=== PATIENT | female | born 1975 | race Hispanic/Latino ===

== ENCOUNTER 2018-07-25 23:47 | Emergency (ER) | payer BC, OTHER ==
[2018-07-26 00:08] LABS: Urine Blood 1+ (NEG); Urine Glucose NEGATIVE (NEG); Urine Protein NEGATIVE (NEG)
[2018-07-26] MEDS ORDERED: FENTANYL CITR 100 MCG/2 ML ONE (00:09)
[2018-07-26] MEDS ORDERED: ONDANSETRON 4 MG/2 ML VIAL ONE (00:09)
[2018-07-26 00:14] LABS: Absolute Lymphocytes (CBC) 3.2 K/uL (0.7-4.9); Absolute Monocytes 0.5 K/uL (0.1-1.3); Absolute Neutrophil 5.5 K/uL (1.8-8.0); Basophils % 0.6 % (0-1.3); Eosinophils % 1.3 % (0-4.4); Hematocrit 38.1 % (36.0-45.0); MCH 31.7 pg (27.0-35.0); MCV 91.2 fL (80-100); MPV 8.6 fL (7.6-11.3); Monocytes % 5.3 % (3.3-12.3); RBC Red Blood Cell Count 4.18 M/uL (3.86-4.86)
[2018-07-26 00:29] LABS: Urine Amorphous Sediment 4+ /HPF (NONE SEEN); Urine Bacteria <20 /HPF (<20); Urine Culture Reflex Order NOT NEEDED
[2018-07-26 00:42] LABS: Albumin 3.4 g/dL (3.4-5.0); Bilirubin Direct 0.1 mg/dL (0-0.2); Bilirubin Total 0.3 mg/dL (0.2-1.0); Potassium 3.8 mmol/L (3.5-5.1); Protein, Total 6.9 g/dL (6.4-8.2)
--- NOTE | 2018-07-26 02:27 | ER ---
Nurse's Notes [facility] Name: Marjorie Kingston Age: 42 yrs Sex: Female : 1975 Arrival Date: 07/25/2018 Time: 23:48 Bed 5 Private MD: Pierre Jiménez Diagnosis: Hydronephrosis with renal and ureteral calculous obstruction Presentation: 07/26 00:05 Presenting complaint: Patient states: right flank, right lower abd pain with N/V ak1 starting tonight. Transition of care: patient was not received from another setting of care. Onset of symptoms was July 26, 2018. Risk Assessment: Do you want to hurt yourself or someone else? Patient reports no desire to harm self or others. Initial Sepsis Screen: Does the patient meet any 2 criteria? No. Patient's initial sepsis screen is negative. Does the patient have a suspected source of infection? No. Patient's initial sepsis screen is negative. Care prior to arrival: None. 00:05 Method Of Arrival: Ambulatory ak1 00:05 Acuity: TIAN 3 ak1 Triage Assessment: 00:07 General: Appears uncomfortable, Behavior is calm, cooperative. Pain: Complains of pain ak1 in right lower quadrant and anterior aspect of right lateral abdomen and right mid back and right flank. EENT: No signs and/or symptoms were reported regarding the EENT system. Neuro: No deficits noted. Cardiovascular: No deficits noted. Respiratory: No deficits noted. GI: Reports lower abdominal pain, cramping, nausea, Pain is 6 out of 10 on a pain scale. vomiting. : No signs and/or symptoms were reported regarding the genitourinary system. Derm: No signs and/or symptoms reported regarding the dermatologic system. Musculoskeletal: No signs and/or symptoms reported regarding the musculoskeletal system. 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 - Social history:: Smoking status: Patient/guardian denies using tobacco. - Ebola Screening: : No symptoms or risks identified at this time. Screenin:09 Abuse screen: Denies threats or abuse. Denies injuries from another. Nutritional ak1 screening: No deficits noted. Tuberculosis screening: No symptoms or risk factors identified. Fall Risk None identified. Assessment: 00:08 Reassessment: Patient appears in no apparent distress at this time. No changes from ak1 previously documented assessment. Patient is alert, oriented x 3, equal unlabored respirations, skin warm/dry/pink. see triage assessment. GI: Abdomen is flat, non-distended. 01:53 Reassessment: Patient appears in no apparent distress at this time. No changes from ak1 previously documented assessment. Patient is alert, oriented x 3, equal unlabored respirations, skin warm/dry/pink. pt and family informed of wait for CT results. Vital Signs: 00:04 BP 148 / 91; Pulse 74; Resp 18; Temp 98.2(O); Pulse Ox 100% on R/A; Weight 108.86 kg ak1 (R); Height 5 ft. 4 in. (162.56 cm) (R); Pain 6/10; 00:09 BP 148 / 91; Pulse 72; Resp 16; Pulse Ox 98% on R/A; mt 01:30 BP 119 / 75; Pulse 60; Resp 16; Pulse Ox 97% on R/A; ak1 00:04 Body Mass Index 41.20 (108.86 kg, 162.56 cm) ak1 ED Course: 07/25 23:48 Patient arrived in ED. am2 23:49 Pierre Jiménez DO is Private Physician. am2 23:51 [facility] jr8 23:51 Jasbir Dee MD is Attending Physician. jr8 07/26 00:04 Kim Mae, FRANCISCO is Primary Nurse. ak1 00:04 Arm band placed on Patient placed in an exam room, on a stretcher, on pulse oximetry, ak1 Patient notified of wait time. 00:06 Triage completed. ak1 00:09 Patient has correct armband on for positive identification. Bed in low position. Call ak1 light in reach. Side rails up X 1. Side rails up X2. Adult w/ patient. Pulse ox on. NIBP on. 00:09 Missed attempt(s): 20 gauge in left antecubital area. mt 00:19 Inserted saline lock: 22 gauge in right forearm, using aseptic technique. lp1 01:13 CT completed. Patient tolerated procedure well. Patient moved to CT via wheelchair. 01:19 CT Abd/Pelvis - W/Contrast In Process Unspecified. EDMS 01:54 No provider procedures requiring assistance completed. ak1 02:01 Patient moved back from CT. 02:26 Alma Cruz MD is Referral Physician. jr8 02:46 IV discontinued, intact, bleeding controlled, No redness/swelling at site. Pressure ak1 dressing applied. Administered Medications: 00:20 Drug: fentaNYL (PF) 50 mcg Route: IVP; Site: right forearm; lp1 00:40 Follow up: Response: Pain is decreased lp1 00:20 Drug: Zofran 4 mg Route: IVP; Site: right forearm; lp1 00:40 Follow up: Response: No adverse reaction lp1 01:26 Drug: fentaNYL (PF) 50 mcg Route: IVP; Site: right forearm; lp1 02:45 Follow up: Response: No adverse reaction ak1 02:25 Drug: TORadol 30 mg Route: IVP; Site: left antecubital; ak1 02:45 Follow up: Response: No adverse reaction ak1 02:25 Drug: Flomax 0.4 mg Route: PO; ak1 02:45 Follow up: Response: No adverse reaction ak1 Outcome: 02:26 Discharge ordered by . jr8 02:46 Discharged to home via wheelchair, with family. ak1 02:46 Condition: improved 02:46 Discharge instructions given to patient, family, Instructed on discharge instructions, follow up and referral plans. no drinking with medication, no driving heavy equipment, medication usage, safe sex practices, Demonstrated understanding of instructions, follow-up care, medications, Prescriptions given X 3. 02:47 Patient left the ED. ak1 Signatures: Dispatcher [employer] EDMI Juarez Blount Ruby Martinez RN RN lp1 Lew Shukla PA PA jr8 Kim Mae RN RN ak1 Stefania Nunez Moriah sc
--- NOTE | 2018-07-26 02:27 | EDPHYS ---
Physician Documentation [facility] Name: Marjorie Kingston Age: 42 yrs Sex: Female : 1975 Arrival Date: 07/25/2018 Time: 23:48 Bed 5 Private MD: Pierre Jiménez ED Physician Jasbir Dee HPI: 07/25 23:59 This 42 yrs old Female presents to ER via Unassigned with complaints of Flank jr8 Pain, Nausea/Vomiting/Diarrhea, Chills. 23:59 The pain radiates. Onset: The symptoms/episode began/occurred acutely, today. Modifying jr8 factors: The symptoms are alleviated by nothing. the symptoms are aggravated by movement, palpation/percussion. Associated signs and symptoms: Pertinent positives: diarrhea, nausea. Severity of pain: At its worst the pain was moderate in the emergency department the pain is unchanged. The patient has not experienced similar symptoms in the past. The patient has not recently seen a physician. HEALTH AID: 07/26 00:04 LMP 07/19/2018, UPT negative ak1 Historical: - Allergies: 00:07 No Known Allergies; ak1 - Home Meds: 00:07 None [Active]; ak1 - PMHx: 00:07 None; ak1 - PSHx: 00:07 ; Cholecystectomy; ak1 - Immunization history:: Adult Immunizations unknown. - Social history:: Smoking status: Patient/guardian denies using tobacco. - Ebola Screening: : No symptoms or risks identified at this time. ROS: 07/25 23:59 Eyes: Negative for injury, pain, redness, and discharge, ENT: Negative for injury, jr8 pain, and discharge, Neck: Negative for injury, pain, and swelling, Respiratory: Negative for shortness of breath, cough, wheezing, and pleuritic chest pain, MS/Extremity: Negative for injury and deformity, Skin: Negative for injury, rash, and discoloration, Neuro: Negative for headache, weakness, numbness, tingling, and seizure. Abdomen/GI: Positive for abdominal pain, nausea, diarrhea, Negative for abdominal distension, anorexia, dysphagia, hematemesis, black/tarry stool, rectal pain, rectal bleeding, bowel incontinence, flatulence. Back: Positive for pain at rest, pain with movement, of the right flank and right mid back. Exam: 23:59 Eyes: Pupils equal round and reactive to light, extra-ocular motions intact. Lids and jr8 lashes normal. Conjunctiva and sclera are non-icteric and not injected. Cornea within normal limits. Periorbital areas with no swelling, redness, or edema. ENT: Nares patent. No nasal discharge, no septal abnormalities noted. Tympanic membranes are normal and external auditory canals are clear. Oropharynx with no redness, swelling, or masses, exudates, or evidence of obstruction, uvula midline. Mucous membranes moist. Neck: Trachea midline, no thyromegaly or masses palpated, and no cervical lymphadenopathy. Supple, full range of motion without nuchal rigidity, or vertebral point tenderness. No Meningismus. Cardiovascular: Regular rate and rhythm with a normal S1 and S2. No gallops, murmurs, or rubs. Normal PMI, no JVD. No pulse deficits. Respiratory: Lungs have equal breath sounds bilaterally, clear to auscultation and percussion. No rales, rhonchi or wheezes noted. No increased work of breathing, no retractions or nasal flaring. Back: No spinal tenderness. No costovertebral tenderness. Full range of motion. Skin: Warm, dry with normal turgor. Normal color with no rashes, no lesions, and no evidence of cellulitis. MS/ Extremity: Pulses equal, no cyanosis. Neurovascular intact. Full, normal range of motion. Neuro: Awake and alert, GCS 15, oriented to person, place, time, and situation. Cranial nerves II-XII grossly intact. Motor strength 5/5 in all extremities. Sensory grossly intact. Cerebellar exam normal. Normal gait. 23:59 Abdomen/GI: Inspection: obese Bowel sounds: active, all quadrants, Palpation: soft, in all quadrants, mild abdominal tenderness, in the anterior aspect of right lateral abdomen and right lower quadrant, mass, is not appreciated, rebound tenderness, is not appreciated, voluntary guarding, is not appreciated, involuntary guarding, is not appreciated, no appreciated organomegaly, Indicators: McBurney's point is not tender, Elder's sign is negative, Rovsing's sign is negative, Liver: no appreciated palpable abnormalities, tenderness, is not appreciated. Vital Signs: 07/26 00:04 BP 148 / 91; Pulse 74; Resp 18; Temp 98.2(O); Pulse Ox 100% on R/A; Weight 108.86 kg ak1 (R); Height 5 ft. 4 in. (162.56 cm) (R); Pain 6/10; 00:09 BP 148 / 91; Pulse 72; Resp 16; Pulse Ox 98% on R/A; mt 01:30 BP 119 / 75; Pulse 60; Resp 16; Pulse Ox 97% on R/A; ak1 00:04 Body Mass Index 41.20 (108.86 kg, 162.56 cm) ak1 MDM: 07/25 23:51 Patient medically screened. 07/26 02:25 Differential diagnosis: nephrolithiasis, pyelonephritis, UTI. Data reviewed: [facility] signs, nurses notes, lab test result(s), radiologic studies, CT scan. Data interpreted: Pulse oximetry: on room air is 97 %. Interpretation: normal. Counseling: I had a detailed discussion with the patient and/or guardian regarding: the historical points, exam findings, and any diagnostic results supporting the discharge/admit diagnosis, lab results, radiology results, the need for outpatient follow up, a urologist, to return to the emergency department if symptoms worsen or persist or if there are any questions or concerns that arise at home. 07/25 23:59 Order name: Basic Metabolic Panel; Complete Time: 00:49 07/25 23:59 Order name: CBC with Diff; Complete Time: 00:22 07/25 23:59 Order name: Hepatic Function; Complete Time: 00:49 07/25 23:59 Order name: Lipase; Complete Time: 00:49 07/25 23:59 Order name: Urine Microscopic Only; Complete Time: 00:39 07/25 23:59 Order name: CT Abd/Pelvis - W/Contrast 07/26 00:04 Order name: Urine Dipstick--Ancillary (enter results) [facility] 07/26 00:04 Order name: Urine --Ancillary (enter results) [facility] 07/25 23:59 Order name: Urine Test (obtain specimen); Complete Time: 00:01 07/25 23:59 Order name: IV Saline Lock; Complete Time: 00:20 [facility] 07/25 23:59 Order name: Labs collected and sent; Complete Time: 00:20 07/25 23:59 Order name: Urine Dipstick-Ancillary (obtain specimen); Complete Time: 00:01 jr8 Administered Medications: 00:20 Drug: fentaNYL (PF) 50 mcg Route: IVP; Site: right forearm; lp1 00:40 Follow up: Response: Pain is decreased lp1 00:20 Drug: Zofran 4 mg Route: IVP; Site: right forearm; lp1 00:40 Follow up: Response: No adverse reaction lp1 01:26 Drug: fentaNYL (PF) 50 mcg Route: IVP; Site: right forearm; lp1 02:45 Follow up: Response: No adverse reaction ak1 02:25 Drug: TORadol 30 mg Route: IVP; Site: left antecubital; ak1 02:45 Follow up: Response: No adverse reaction ak1 02:25 Drug: Flomax 0.4 mg Route: PO; ak1 02:45 Follow up: Response: No adverse reaction ak1 Disposition: 04:49 Co-signature as Attending Physician, Jasbir Dee MD. rn Disposition: 07/26/18 02:26 Discharged to Home. Impression: Hydronephrosis with renal and ureteral calculous obstruction. - Condition is Stable. - Discharge Instructions: Kidney Stones, Hydronephrosis. - Prescriptions for Tylenol- Codeine #3 300-30 mg Oral Tablet - take 2 tablet by ORAL route every 6 hours As needed; 30 tablet. Zofran 4 mg Oral Tablet - take 1 tablet by ORAL route every 12 hours As needed; 20 tablet. Flomax 0.4 mg Oral Capsule, Sust. Release 24 hr - take 1 capsule by ORAL route once daily 1/2 hour following the same meal each day; 30 capsule. - Medication Reconciliation Form, Thank You Letter, Antibiotic Education, Prescription Opioid Use form. - Follow up: Alma Cruz MD; When: 2 - 3 days; Reason: Recheck today's complaints, Continuance of care, Re-evaluation by your physician. - Problem is new. - Symptoms have improved. Signatures: Dispatcher [employer] EDJasbir Barrios MD MD rn Pena, Laura, RN RN lp1 Lew Shukla PA PA jr8 Kim Mae RN RN ak1 Corrections: (The following items were deleted from the chart) 00:12 00:00 Creatinine for Radiology+C.LAB.BRZ ordered. EDOR EDMS 02:47 02:26 07/26/2018 02:26 Discharged to Home. Impression: Hydronephrosis with renal and ak1 ureteral calculous obstruction. Condition is Stable. Forms are Medication Reconciliation Form, Thank You Letter, Antibiotic Education, Prescription Opioid Use. Follow up: Alma Cruz; When: 2 - 3 days; Reason: Recheck today's complaints, Continuance of care, Re-evaluation by your physician. Problem is new. Symptoms have improved. jr8
[2018-07-26] MEDS ORDERED: KETOROLAC 30 MG/ML INJ ONE (02:34)
[2018-07-26] MEDS ORDERED: TAMSULOSIN 0.4 MG SR CAP ONE (02:34)
[2018-07-26 03:01] VITALS: TEMP 98.2
[2018-07-26 03:04] VITALS: BP 119/75; O2SAT 97
--- NOTE | 2018-07-26 08:16 | RAD REPORT ---
EXAM DESCRIPTION: CTAbdomen Pelvis W Contrast - 07/26/2018 2:27 am CLINICAL HISTORY: Abdominal pain. iv only;Abd pain COMPARISON: No comparisons TECHNIQUE: Biphasic CT imaging of the abdomen and pelvis was performed with 100 ml non-ionic IV cont rast. All CT scans are performed using dose optimization technique as appropriate and may include automated exposure control or mA/KV adjustment according to patient size. FINDINGS: The lung bases are clear.Cholecystectomy. The liver demonstrates fatty infiltration. The spleen, pancreas, adrenal glands and left kidney are w ithin normal limits. Mild right hydronephrosis and hydroureter is present. 4 mm stone (400 HU) is pre sent in the distal right ureter. No bowel obstruction, free air, free fluid or abscess. Small fat containing umbilical hernia. The ashley endix is normal. No evidence of significant lymphadenopathy. No suspicious bony findings. IMPRESSION: Mild right hydronephrosis is present caused by a 4 mm stone distal right ureter.
== END 2018-07-26 02:47 | disposition home or self-care (01) ==
LOC: ER 23:47
DX: N13.2 Hydronephrosis with renal and ureteral calculous obstruction (principal)
CPT/HCPCS: 36415; 74177; 80048; 80076; 81003; 81015; 81025; 83690; 85025; 99284; J2405; J3010; Q9967

== ENCOUNTER 2018-07-26 20:26 | Observation (INO) | payer OTHER ==
[2018-07-26] MEDS ORDERED: ONDANSETRON 4 MG/2 ML VIAL ONE (21:09)
[2018-07-26] MEDS ORDERED: MORPHINE 4 MG/ML SYR ONE ×2 (21:09→23:06)
[2018-07-26] MEDS ORDERED: NA CHLORIDE 0.9% 2,000 ML ONE (21:10)
[2018-07-26] MEDS ORDERED: FAMOTIDINE 20 MG/2 ML VIAL IV ONE ×2 (21:10→21:17)
[2018-07-26 21:55] LABS: Absolute Lymphocytes (CBC) 2.1 K/uL (0.7-4.9); Absolute Monocytes 0.5 K/uL (0.1-1.3); Basophils % 0.4 % (0-1.3); Eosinophils % 0.6 % (0-4.4); Hematocrit 39.7 % (36.0-45.0); Lymphocytes % 17.8 % (15.3-44.8); MCH 31.6 pg (27.0-35.0); MCV 91.3 fL (80-100); MPV 9.4 fL (7.6-11.3); Monocytes % 4.4 % (3.3-12.3); RBC Red Blood Cell Count 4.35 M/uL (3.86-4.86)
[2018-07-26] MEDS ORDERED: MAGNESIUM SULFATE 1 gm IVPB 1 GM/100 ML BAG IV ONE (21:55)
--- NOTE | 2018-07-26 22:00 | RAD REPORT ---
EXAM DESCRIPTION: RAD - Abdomen 1 View (KUB) - 07/26/2018 9:51 pm CLINICAL HISTORY: Abdomen pain. FINDINGS: The bowel gas pattern is unremarkable. There are multiple calcifications within the pelvis. 1 probably upper represents the small distal rig ht ureteral calculus seen on the CT abdomen of July 26, 2018
[2018-07-26 22:19] LABS: ALT/SGPT 32 U/L (12-78); AST/SGOT 18 U/L (15-37); Albumin 3.6 g/dL (3.4-5.0); Alkaline Phosphatase 79 U/L (45-117); Amylase Level 28 U/L (25-115); BUN Blood Urea Nitrogen 15 mg/dL (7-18); Bicarbonate 23 mmol/L (21-32); Bilirubin Direct 0.1 mg/dL (0-0.2); Bilirubin Total 0.5 mg/dL (0.2-1.0); Glucose Level 133 mg/dL (74-106); Lipase 64 U/L (73-393); Potassium 3.6 mmol/L (3.5-5.1); Protein, Total 7.5 g/dL (6.4-8.2); Sodium Level 140 mmol/L (136-145)
--- NOTE | 2018-07-26 22:42 | ER ---
Nurse's Notes [facility] Name: Marjorie Kingston Age: 42 yrs Sex: Female : 1975 Arrival Date: 07/26/2018 Time: 20:26 Bed 23 Private MD: Diagnosis: Calculus of kidney and ureter-Right;Unspecified renal colic-Right, intractable;Nausea and vomiting Presentation: 07/26 20:33 Presenting complaint: Patient states: Right flank pain since yesterday. DX with kidney aj stone yesterday. Reports intolerance of food or liquids today. Transition of care: patient was not received from another setting of care. Onset of symptoms was July 25, 2018. Risk Assessment: Do you want to hurt yourself or someone else? Patient reports no desire to harm self or others. Initial Sepsis Screen: Does the patient meet any 2 criteria? No. Patient's initial sepsis screen is negative. Does the patient have a suspected source of infection? No. Patient's initial sepsis screen is negative. Care prior to arrival: None. 20:33 Method Of Arrival: Wheelchair aj 20:33 Acuity: TIAN 3 aj Triage Assessment: 20:34 General: Appears in no apparent distress. uncomfortable, Behavior is calm, cooperative, aj appropriate for age. Pain: Complains of pain in posterior aspect of right lateral abdomen and anterior aspect of right lateral abdomen. Neuro: Level of Consciousness is awake, alert, obeys commands, Oriented to person, place, time, situation, Appropriate for age. Respiratory: Airway is patent Respiratory effort is even, unlabored, Respiratory pattern is regular, symmetrical. GI: Abdomen is obese, Reports nausea, vomiting. : Reports pain in right flank(s). Derm: Skin is intact, is healthy with good turgor, Skin is pink, warm \T\ dry. normal. 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 - Social history:: Smoking status: Patient/guardian denies using tobacco. - Ebola Screening: : Patient negative for fever greater than or equal to 101.5 degrees Fahrenheit, and additional compatible Ebola Virus Disease symptoms Patient denies exposure to infectious person Patient denies travel to an Ebola-affected area in the 21 days before illness onset No symptoms or risks identified at this time. Screenin:47 Abuse screen: Denies threats or abuse. Nutritional screening: No deficits noted. tl3 Tuberculosis screening: No symptoms or risk factors identified. Fall Risk None identified. Assessment: 20:47 General: Appears distressed, uncomfortable, Behavior is cooperative, appropriate for tl3 age, anxious. Pain: Complains of pain in abdomen and anterior aspect of right lateral abdomen and posterior aspect of right lateral abdomen Pain currently is 10 out of 10 on a pain scale. Neuro: Level of Consciousness is awake, alert, obeys commands, Oriented to person, place, time, situation, Appropriate for age. Cardiovascular: Patient's skin is warm and dry. Respiratory: Airway is patent Respiratory effort is even, unlabored, Respiratory pattern is regular, symmetrical. GI: Bowel sounds hyperactive in right upper quadrant, left upper quadrant, right lower quadrant and left lower quadrant Abdomen is tender to palpation in right lower quadrant and left lower quadrant. : Reports cramping, pt dx with kidney stone yesterday 4mm. EENT: No signs and/or symptoms were reported regarding the EENT system. Derm: No signs and/or symptoms reported regarding the dermatologic system. Musculoskeletal: No signs and/or symptoms reported regarding the musculoskeletal system. 21:46 Reassessment: Patient and/or family updated on plan of care and expected duration. Pain tl3 level reassessed. Patient is alert, oriented x 3, equal unlabored respirations, skin warm/dry/pink. pt to radiology. 23:55 Reassessment: Patient appears in no apparent distress at this time. No changes from tl3 previously documented assessment. Patient and/or family updated on plan of care and expected duration. Pain level reassessed. Patient is alert, oriented x 3, equal unlabored respirations, skin warm/dry/pink. Vital Signs: 20:34 BP 149 / 46; Pulse 76; Resp 16; Temp 98.2; Pulse Ox 100% on R/A; Weight 108.86 kg; aj Height 5 ft. 4 in. (162.56 cm); 21:46 BP 124 / 75; Pulse 78; Resp 20; Pulse Ox 100% on R/A; tl3 22:07 BP 122 / 70; Pulse 68; Resp 18; Pulse Ox 98% ; tl3 20:34 Body Mass Index 41.20 (108.86 kg, 162.56 cm) aj ED Course: 20:26 Patient arrived in ED. ds1 20:34 Triage completed. aj 20:34 Arm band placed on left wrist. Patient placed in an exam room. aj 20:40 Aletha Clement, FRANCISCO is Primary Nurse. tl3 20:42 Godfrey Mallory PA is PHCP. cp 20:42 Arash Reed MD is Attending Physician. cp 20:47 Patient has correct armband on for positive identification. Placed in gown. Bed in low tl3 position. Call light in reach. Side rails up X 1. Warm blanket given. 20:47 No provider procedures requiring assistance completed. tl3 21:36 Note: PT STATES SHE WAS UNABLE TO COME TO XRAY AT THE TIME DUE TO PAIN LEVEL . bb2 21:46 Initial lab(s) drawn, by me, sent to lab. Urine collected: clean catch specimen, clear. tl3 Inserted saline lock: 20 gauge in right forearm, using aseptic technique. Blood collected. 21:49 X-ray completed. Patient tolerated procedure well. az 21:50 XRAY KUB In Process Unspecified. EDMS 22:40 Gunner Ortiz MD is Hospitalizing Provider. cp 23:55 Patient admitted, IV remains in place. tl3 Administered Medications: 20:56 CANCELLED (Physician Discretion): TORadol 30 mg IVP once cp 21:15 Drug: NS 0.9% 1000 ml Route: IV; Rate: 1 bolus; Site: right forearm; Delivery: Primary tl3 tubing; 23:04 Follow up: IV Status: Completed infusion; IV Intake: 1000ml tl3 21:15 Drug: NS 0.9% 1000 ml Route: IV; Rate: 125 ml/hr; Site: left forearm; Delivery: Primary tl3 tubing; 23:04 Follow up: IV Status: Infusion continued upon admission; IV Intake: 400ml tl3 21:18 Drug: Zofran 4 mg Route: IVP; Infused Over: 2 mins; Site: right forearm; tl3 21:48 Follow up: Response: Nausea is decreased tl3 21:18 Drug: Pepcid 20 mg Route: IVP; Infused Over: 2 mins; Site: right forearm; tl3 21:48 Follow up: Response: No adverse reaction tl3 21:18 Drug: morphine 4 mg Route: IVP; Infused Over: 2 mins; Site: right forearm; tl3 21:48 Follow up: Response: Pain is decreased tl3 21:36 Drug: TORadol 30 mg Route: IVP; Site: right antecubital; mg2 21:48 Follow up: Response: Pain is decreased tl3 21:54 Drug: Magnesium Sulfate 1 grams Route: IVPB; Infused Over: 1 hrs; Site: right forearm; tl3 Delivery: Primary tubing; 23:04 Follow up: IV Status: Completed infusion; IV Intake: 100ml tl3 23:03 Drug: morphine 4 mg Route: IVP; Infused Over: 2 mins; Site: right forearm; tl3 23:05 Follow up: Response: Pain is decreased tl3 23:10 Drug: Rocephin 1 grams {Note: IVP.} Route: IV; Rate: calculated rate; Infused Over: 5 tl3 mins; Site: right forearm; Delivery: Primary tubing; 23:11 Follow up: IV Status: Completed infusion; IV Intake: 20ml tl3 Intake: 23:04 IV: 100ml; Total: 100ml. tl3 23:04 IV: 1000ml; Total: 1100ml. tl3 23:04 IV: 400ml; Total: 1500ml. tl3 23:11 IV: 20ml; Total: 1520ml. tl3 Outcome: 22:41 Decision to Hospitalize by Provider. 07/27 00:03 Admitted to Tele accompanied by tech, via wheelchair, with chart, Report called to tl3 FRANCISCO Wright Condition: stable Instructed on the need for admit. 00:04 Patient left the ED. tl3 Signatures: Dispatcher [employer] Stefania Mcfarland RN RN aj Sanford, Demi ds1 Godfrey Mallory PA PA cp Shawanda Barone bb2 Aletha Clement RN RN tl3 Ez Kirk RN RN mg2 Radha Amado
--- NOTE | 2018-07-26 22:42 | EDPHYS ---
Physician Documentation [facility] Name: Marjorie Kingston Age: 42 yrs Sex: Female : 1975 Arrival Date: 07/26/2018 Time: 20:26 Bed 23 Private MD: ED Physician Arash Reed HPI: 07/26 20:50 This 42 yrs old Female presents to ER via Wheelchair with complaints of cp Possible Kidney Stone. 20:50 The patient complains of pain in the right mid back. The pain radiates to the abdomen. cp 20:50 Onset: The symptoms/episode began/occurred yesterday, and became worse today. cp Associated signs and symptoms: Pertinent positives: nausea, vomiting, Pertinent negatives: pain radiating to the lower extremities. Severity of pain: in the emergency department the pain is unchanged despite home interventions. The patient has been recently seen at the [facility] Emergency Department, yesterday, for similar complaints CT scan was performed, diagnosed with kidney stone. 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 - Social history:: Smoking status: Patient/guardian denies using tobacco. - Ebola Screening: : Patient negative for fever greater than or equal to 101.5 degrees Fahrenheit, and additional compatible Ebola Virus Disease symptoms Patient denies exposure to infectious person Patient denies travel to an Ebola-affected area in the 21 days before illness onset No symptoms or risks identified at this time. ROS: 20:56 Cardiovascular: Negative for chest pain, palpitations, and edema. cp 20:56 Constitutional: Positive for poor PO intake, Negative for fever. 20:56 Respiratory: Negative for cough, shortness of breath, wheezing. 20:56 Abdomen/GI: Positive for nausea and vomiting, Negative for diarrhea, constipation. 20:56 Back: Positive for flank pain, on the right, Negative for injury or acute deformity. 20:56 Skin: Negative for cellulitis, rash. 20:56 Neuro: Negative for altered mental status, headache, weakness. 20:56 All other systems are negative. Exam: 21:00 Constitutional: The patient appears in no acute distress, alert, awake, non-toxic, well cp developed, well nourished, in obvious pain, uncomfortable. 21:00 Head/Face: Normocephalic, atraumatic. cp 21:00 Eyes: Periorbital structures: appear normal, Conjunctiva: normal, no exudate, no injection, Sclera: no appreciated abnormality, Lids and lashes: appear normal, bilaterally. 21:00 ENT: External ear(s): are unremarkable, Nose: is normal, Mouth: Lips: moist, Oral mucosa: pink and intact, moist, Posterior pharynx: is normal, airway is patent, no erythema, no exudate. 21:00 Neck: ROM/movement: is normal, is supple, without pain, no range of motions limitations, no meningismus, no nuchal rigidity. 21:00 Chest/axilla: Inspection: normal, Palpation: is normal, no crepitus, no tenderness. 21:00 Cardiovascular: Rate: normal, Rhythm: regular. 21:00 Respiratory: the patient does not display signs of respiratory distress, Respirations: normal, no use of accessory muscles, no retractions, no splinting, no tachypnea, labored breathing, is not present, Breath sounds: are clear throughout, no decreased breath sounds, no stridor, no wheezing. 21:00 Abdomen/GI: Inspection: abdomen appears normal, Bowel sounds: active, all quadrants, Palpation: soft, in all quadrants, moderate abdominal tenderness, in the right upper quadrant and right lower quadrant, rebound tenderness, is not appreciated, involuntary guarding, is not appreciated. 21:00 Back: CVA tenderness, that is severe, is noted on the right. 21:00 Musculoskeletal/extremity: Exam is negative for decreased range of motion, edema, injury, pain. 21:00 Skin: cellulitis, is not appreciated, no rash present. 21:00 Neuro: Orientation: to person, place \T\ time. Mentation: lucid, able to follow commands, Cerebellar function: is grossly normal, Motor: moves all fours, strength is normal, Sensation: no obvious gross deficits. Vital Signs: 20:34 BP 149 / 46; Pulse 76; Resp 16; Temp 98.2; Pulse Ox 100% on R/A; Weight 108.86 kg; aj Height 5 ft. 4 in. (162.56 cm); 21:46 BP 124 / 75; Pulse 78; Resp 20; Pulse Ox 100% on R/A; tl3 22:07 BP 122 / 70; Pulse 68; Resp 18; Pulse Ox 98% ; tl3 20:34 Body Mass Index 41.20 (108.86 kg, 162.56 cm) aj MDM: 20:43 Patient medically screened. cp 21:00 Differential diagnosis: nephrolithiasis, pyelonephritis, UTI, sepsis. cp 22:45 Data reviewed: vital signs, nurses notes, lab test result(s), radiologic studies, plain cp films, and as a result, I will admit patient. 22:45 ED course: VSS. Patient continues to report pain. Will admit for pain control. cp 22:46 Physician consultation: Alma Cruz MD was called at 22:47, was contacted at 22:47, cp regarding consult, patient's condition, would like admission per Dr. Gunner Ortiz MD. 07/26 20:43 Order name: Amylase, Serum; Complete Time: 22:41 cp 07/26 20:43 Order name: Basic Metabolic Panel; Complete Time: 22:41 cp 07/26 22:41 Interpretation: Normal except: CL 108; GLUC 133. cp 07/26 20:43 Order name: CBC with Diff; Complete Time: 22:01 cp 07/26 22:01 Interpretation: Normal except: WBC 11.7; GRETA% 76.8; NEUT A 9.0. 07/26 20:43 Order name: Creatinine for Radiology; Complete Time: 22:15 cp 07/26 22:15 Interpretation: Reviewed. 07/26 20:43 Order name: Hepatic Function; Complete Time: 22:41 cp 07/26 20:43 Order name: Lipase; Complete Time: 22:41 cp 07/26 20:43 Order name: Urine Microscopic Only; Complete Time: 23:41 cp 07/26 21:00 Order name: XRAY KUB; Complete Time: 22:08 cp 07/26 22:08 Interpretation: Report reviewed. 07/26 22:23 Order name: Urine Dipstick--Ancillary (enter results); Complete Time: 23:41 rg2 07/26 20:43 Order name: IV Saline Lock; Complete Time: 21:19 cp 09/06 20:43 Order name: Labs collected and sent; Complete Time: 21:19 cp 07/26 20:43 Order name: Urine Dipstick-Ancillary (obtain specimen); Complete Time: 22:17 cp 07/26 22:09 Order name: PO challenge; Complete Time: 22:17 cp 07/26 22:43 Order name: NPO; Complete Time: 23:03 cp 07/26 22:57 Order name: CONS Physician Consult; Complete Time: 23:04 EDMS Administered Medications: 20:56 CANCELLED (Physician Discretion): TORadol 30 mg IVP once cp 21:15 Drug: NS 0.9% 1000 ml Route: IV; Rate: 1 bolus; Site: right forearm; Delivery: Primary tl3 tubing; 23:04 Follow up: IV Status: Completed infusion; IV Intake: 1000ml tl3 21:15 Drug: NS 0.9% 1000 ml Route: IV; Rate: 125 ml/hr; Site: left forearm; Delivery: Primary tl3 tubing; 23:04 Follow up: IV Status: Infusion continued upon admission; IV Intake: 400ml tl3 21:18 Drug: Zofran 4 mg Route: IVP; Infused Over: 2 mins; Site: right forearm; tl3 21:48 Follow up: Response: Nausea is decreased tl3 21:18 Drug: Pepcid 20 mg Route: IVP; Infused Over: 2 mins; Site: right forearm; tl3 21:48 Follow up: Response: No adverse reaction tl3 21:18 Drug: morphine 4 mg Route: IVP; Infused Over: 2 mins; Site: right forearm; tl3 21:48 Follow up: Response: Pain is decreased tl3 21:36 Drug: TORadol 30 mg Route: IVP; Site: right antecubital; mg2 21:48 Follow up: Response: Pain is decreased tl3 21:54 Drug: Magnesium Sulfate 1 grams Route: IVPB; Infused Over: 1 hrs; Site: right forearm; tl3 Delivery: Primary tubing; 23:04 Follow up: IV Status: Completed infusion; IV Intake: 100ml tl3 23:03 Drug: morphine 4 mg Route: IVP; Infused Over: 2 mins; Site: right forearm; tl3 23:05 Follow up: Response: Pain is decreased tl3 23:10 Drug: Rocephin 1 grams {Note: IVP.} Route: IV; Rate: calculated rate; Infused Over: 5 tl3 mins; Site: right forearm; Delivery: Primary tubing; 23:11 Follow up: IV Status: Completed infusion; IV Intake: 20ml tl3 Disposition: 07/27 02:14 Co-signature as Attending Physician, Arash Reed MD I agree with the assessment and ps1 plan of care. Disposition: 07/26/18 22:41 Hospitalization ordered by Gunner Ortiz for Observation. Preliminary diagnosis are Calculus of kidney and ureter - Right, Unspecified renal colic - Right, intractable, Nausea and vomiting. - Bed requested for Telemetry/MedSurg (observation). - Status is Observation. tl3 - Condition is Stable. - Problem is new. - Symptoms have improved. UTI on Admission? No Signatures: Dispatcher [employer] EDMS Kamryn Falk rg2 Stefania Underwood, RN RN aj Godfrey Mallory PA PA cp Arash Reed MD MD ps1 Aletha Clement RN RN tl3 Ez Kirk RN RN mg2 Corrections: (The following items were deleted from the chart) 07/26 20:56 20:55 TORadol 30 mg IVP once ordered. cp cp 23:36 22:41 Hospitalization Ordered by Gunner Ortiz MD for Observation. Preliminary rg2 diagnosis is Calculus of kidney and ureter - Right; Unspecified renal colic - Right, intractable; Nausea and vomiting. Bed requested for Telemetry/MedSurg (observation). Status is Observation. Condition is Stable. Problem is new. Symptoms have improved. UTI on Admission? No. cp 07/27 00:04 07/26 23:36 07/26/2018 22:41 Hospitalization Ordered by Gunner Ortiz MD for tl3 Observation. Preliminary diagnosis is Calculus of kidney and ureter - Right; Unspecified renal colic - Right, intractable; Nausea and vomiting. Bed requested for Telemetry/MedSurg (observation). Status is Observation. Condition is Stable. Problem is new. Symptoms have improved. UTI on Admission? No. rg2
[2018-07-26 23:02] LABS: Urine Bacteria 20-50 /HPF (<20); Urine Culture Reflex Order REFLEXED
[2018-07-26 23:05] LABS: Urine Blood 1+ (NEG); Urine Glucose NEGATIVE (NEG); Urine Protein 1+ (NEG); Urine Specific Gravity >1.030 (1.005-1.030); Urine pH 5.5 (5.0-7.0)
[2018-07-26] MEDS ORDERED: CEFTRIAXONE/SWI 1gm 1 GM/10 ML SYR ONE (23:12)
--- NOTE | 2018-07-26 23:28 | P.HP ---
Certification for Inpatient Patient admitted to: Observation With expected LOS: <2 Midnights Practitioner: I am a practitioner with admitting privileges, knowledge of patient current condition, hospital course, and medical plan of care. Services: Services provided to patient in accordance with Admission requirements found in Title 42 Section 412.3 of the Code of Federal Regulations Patient History Date of Service: 07/26/18 Reason for admission: Hydronephrosis, ureteral stone History of Present Illness: Ms Kingston is a 42-year-old woman who start yesterday with excruciating right flank pain radiated to right inguinal area. She denied any fever but has had chills. It was associated with nausea and vomiting. The patient came to ER last night, CT scan abdomen and pelvis was remarkable for an 4 mm obstructive right ureteral stone leading with mild hydronephrosis. She was discharged home with symptomatic medication with advice to see urologist in the next 2 or 3 days. However her symptoms got worse along the day, and she decided to come back to ER for further evaluation. At arrival she was afebrile, lab workup shows leukocytosis 11.7 K, KUB still shows right obstructing ureteral stone. Allergies No Known Drug Allergies Allergy (Unverified 07/17/15 19:20) Unknown methylergonovine maleate [From Methergine] Adverse Reaction (Mild, Verified 12/02 08:09) Redness at injection site No Known Allergies Allergy (Uncoded 01/02/17 09:06) Unknown Home medications list reviewed: Yes - Past Medical/Surgical History Diabetic: Yes -: Kidney stone -: Gall bladder removed on 2007 - Family History Family History: Reviewed- Non-Contributory - Social History Smoking Status: Never smoker Alcohol use: No CD- Drugs: No Caffeine use: Yes Place of Residence: Home Review of Systems 10-point ROS is otherwise unremarkable Physical Examination - Physical Exam General: Alert, Mild distress (Due to right flank pain) HEENT: Atraumatic, PERRLA, Mucous membr. moist/pink, EOMI, Sclerae nonicteric Neck: Supple, 2+ carotid pulse no bruit, No LAD, Without JVD or thyroid abnormality Respiratory: Clear to auscultation bilaterally, Normal air movement Cardiovascular: Regular rate/rhythm, Normal S1 S2 Gastrointestinal: Normal bowel sounds, Other (Right CVA positive) Musculoskeletal: No tenderness Integumentary: No rashes Neurological: Normal speech, Normal strength at 5/5 x4 extr, Normal tone, Normal affect Lymphatics: No axilla or inguinal lymphadenopathy - Studies Laboratory Data (last 24 hrs) 07/26/18 21:00: Creatinine 0.70 07/26/18 21:00: WBC 11.7 H D, Hgb 13.8, Hct 39.7, Plt Count 293 07/26/18 21:00: Sodium 140, Potassium 3.6, BUN 15, Creatinine 0.70, Glucose 133 H, Total Bilirubin 0.5, AST 18, ALT 32, Alkaline Phosphatase 79, Amylase 28, Lipase 64 L Assessment and Plan - Problems (Diagnosis) (1) Hydronephrosis Current Visit: Yes Status: Acute Qualifiers: Hydronephrosis type: with ureteral calculous obstruction Qualified Code(s) : N13.2 - Hydronephrosis with renal and ureteral calculous obstruction (2) Ureteral stone with hydronephrosis Current Visit: Yes Status: Acute - Plan The patient will be admitted to the hospital due to right obstructive ureteral stone with mild hydronephrosis. Will keep her NPO, start IV fluids, consult Dr. Cruz. Urine culture are in process, will start empiric IV Rocephin. - Advance Directives Does patient have a Living Will: No Does patient have a Durable POA for Healthcare: No - Code Status/Comfort Care Code Status Assessed: Yes Code Status: Full Code
[2018-07-26] MEDS ORDERED: KETOROLAC 30 MG/ML INJ ONE (23:33)
[2018-07-27] MEDS ORDERED: ACETAMINOPHEN 500 MG TAB PO PRN (00:21)
[2018-07-27] MEDS: ONDANSETRON 4 MG/2 ML VIAL IV PRN ×3 (00:51→21:51)
[2018-07-27] MEDS: NA CHLORIDE 0.9% 1,000 ML IV SCH ×3 (00:52→21:50)
[2018-07-27 01:22] VITALS: BMI 39.2
[2018-07-27] MEDS: PROMETHAZINE 25 MG/ML VIAL IV PRN ×3 (01:33→15:40)
[2018-07-27] MEDS ORDERED: WATER FOR INJ,STERILE 10 ML ONE (01:37)
[2018-07-27] MEDS: KETOROLAC 30 MG/ML INJ IV PRN ×4 (01:41→21:51)
[2018-07-27 06:16] LABS: Absolute Lymphocytes (CBC) 1.7 K/uL (0.7-4.9); Absolute Monocytes 0.6 K/uL (0.1-1.3); Absolute Neutrophil 8.6 K/uL (1.8-8.0); Basophils % 0.5 % (0-1.3); Eosinophils % 0.3 % (0-4.4); Hematocrit 35.4 % (36.0-45.0); Lymphocytes % 15.3 % (15.3-44.8); MCH 32.1 pg (27.0-35.0); MCV 91.4 fL (80-100); MPV 8.7 fL (7.6-11.3); Monocytes % 5.2 % (3.3-12.3); RBC Red Blood Cell Count 3.87 M/uL (3.86-4.86)
[2018-07-27 06:29] LABS: BUN Blood Urea Nitrogen 13 mg/dL (7-18); Bicarbonate 25 mmol/L (21-32); Glucose Level 109 mg/dL (74-106); Potassium 3.9 mmol/L (3.5-5.1); Sodium Level 142 mmol/L (136-145)
[2018-07-27] MEDS ORDERED: KCL 20 MEQ/100 mL IVPB 20 MEQ/100 ML BAG IV SCH (07:00)
[2018-07-27] MEDS ORDERED: CEFTRIAXONE 1 GM/NS 50 ML 1 GM/50 ML BAG IV SCH (09:00)
[2018-07-27] MEDS ORDERED: Ringers Lactate 1,000 ML IV ONE (11:22)
[2018-07-27 11:28] LABS: Specific Gravity 1.025 (1.005-1.030)
[2018-07-27] MEDS ORDERED: PROPOFOL 200 MG/20 ML VIAL IV ONE (11:30)
[2018-07-27] MEDS ORDERED: FENTANYL CITR 100 MCG/2 ML ONE (11:30)
[2018-07-27] MEDS ORDERED: MIDAZOLAM HCL 2 MG/2 ML INJ ONE (11:30)
[2018-07-27] MEDS ORDERED: GENTAMICIN 100 MG/100 ML BAG 100 MG/100 ML BAG IV ONE (11:40)
[2018-07-27] MEDS ORDERED: ONDANSETRON HCL 40 MG/20 ML VIAL ONE (12:04)
[2018-07-27] MEDS ORDERED: DEXAMETHASONE 10 MG/ML VIAL ONE (12:04)
[2018-07-27] MEDS ORDERED: KETOROLAC 30 MG/ML INJ ONE (12:04)
--- NOTE | 2018-07-27 12:35 | RAD REPORT ---
EXAM DESCRIPTION: RAD - Urethrocystogrphy Retrograde - 07/27/2018 12:28 pm FINDINGS: Multiple portable C-arm views were obtained during fluoroscopic assisted placement of a ri ght ureteral stent. Images shows stepwise placement of the catheter. No suspicious or unexpected find ing. Fluoro time was 51 seconds.
[2018-07-27 12:57] VITALS: O2SAT 95
--- NOTE | 2018-07-27 13:43 | CON ---
History: This is a 42-year-old female who has been having excruciating right flank pain. She came t o the ER 2 days ago, came back last night with the same pain. She has a 4 mm stone in the right lowe r ureter based on CAT scan 2 days ago. She had a KUB last night showing some phleboliths in the area and a possible right distal ureter stone in a similar area as the CAT scan. [facility]. Her white count is stable. No fevers. Allergies: METHYLERGONOVINE MALEATE, REACTION AT THE SITE. Home Medications: None. Past Medical History: She is diabetic, history of kidney stone, history of cholecystectomy 2007. Family History: Noncontributory. Social History: Nonsmoker. No alcohol abuse. No drug use. She does use some caffeine. She reside s at home. Review of Systems: [id number] review of systems was unremarkable. Physical Examination: General: She is lying in bed, in no acute distress. Vital Signs: Temperature 97.8, 64, respiratory rate 18, blood pressure 107/59, sats 97%. Pain curre ntly 0 out of 10. HEENT: Atraumatic, normocephalic. Neck: Supple. No JVD. Respiratory: Clear. Cardiovascular: S1, S2. Gastrointestinal: Normal bowel sounds. Musculoskeletal: No tenderness. Skin: No rashes. Neurologic: Normal speech. Normal strength. Lymphatics: No lymphadenopathy. Laboratory Data: Studies reviewed. White count 11.7, H and H 13.8 and 39.7, platelets 293. Cafe Manager nilesh: Sodium 140, potassium 3.6, BUN 15, creatinine 0.7, glucose 133. Her UA reviewed shows blood. No signs of infection. Assessment: A 4 mm right distal urolithiasis. Plan for cystoscopy, right retrograde pyelogram, righ t ureteroscopy, possible stone basket, possible lithotripsy and removal of stone with insertion of do uble-J stent. All the general information, alternatives, and risks were reviewed and patient wishes to proceed. LAYTON/GONZÁLEZ Voice ID: [id number] Report ID: [id number]
--- NOTE | 2018-07-27 14:55 | P.PN ---
Subjective Date of Service: 07/27/18 Primary Care Provider: Unknown Chief Complaint: Hydronephrosis, ureteral stone Subjective: Doing well Physical Examination - Vital Signs Temperature: 97.5 F Blood Pressure: 113/65 Pulse: 60 Respirations: 17 Pulse Ox (%): 93 - Physical Exam General: Alert, In no apparent distress, Oriented x3, Cooperative HEENT: Atraumatic Neck: Supple Respiratory: Clear to auscultation bilaterally, Normal air movement Cardiovascular: Normal pulses, Regular rate/rhythm Gastrointestinal: Normal bowel sounds, Soft and benign, Non-distended, Tenderness (Mild pain to the flank on right side) Integumentary: No erythema, No warmth, No cyanosis Neurological: Normal speech, Normal strength at 5/5 x4 extr, Normal tone, Normal affect - Studies Laboratory Data (last 24 hrs) 07/26/18 21:00: Creatinine 0.70 07/26/18 21:00: WBC 11.7 H D, Hgb 13.8, Hct 39.7, Plt Count 293 07/26/18 21:00: Sodium 140, Potassium 3.6, BUN 15, Creatinine 0.70, Glucose 133 H, Total Bilirubin 0.5, AST 18, ALT 32, Alkaline Phosphatase 79, Amylase 28, Lipase 64 L Medications List Reviewed: Yes Assessment & Plan Discharge Plan: Home Plan to discharge in: 24 Hours Physician Review Additional Text: Impression: Abdominal pain right flank secondary to 4 mm distal right ureteral stone with mild hydronephrosis Plan: Patient admitted for IV pain medication and fluids. Patient currently NPO. Urology consulted for possible removal of stone and stent placement. Await further recommendations from urology. If intervention is done possible discharge later today if not tomorrow if okay with urology. Time Spent Managing Pts Care (In Minutes): 55
[2018-07-27] MEDS ORDERED: CEFTRIAXONE/SWI 1gm 1 GM/10 ML SYR IV SCH (21:00)
[2018-07-28] MEDS: KETOROLAC 30 MG/ML INJ IV PRN ×2 (03:53→09:29)
[2018-07-28] MEDS: ONDANSETRON 4 MG/2 ML VIAL IV PRN (03:53)
[2018-07-28] MEDS: NA CHLORIDE 0.9% 1,000 ML IV SCH (06:21)
--- NOTE | 2018-07-28 07:48 | P.DS ---
Admission Date: 07/26/18 Discharge Date: 07/28/18 Primary Care Provider: Unknown Disposition: ROUTINE DISCHARGE Discharge Condition: GOOD Reason for Admission: Hydronephrosis, ureteral stone Consultations: Urology-Dr. Cruz Procedures: CT Scan: COMPARISON: No comparisons TECHNIQUE: Biphasic CT imaging of the abdomen and pelvis was performed with 100 ml non-ionic IV contrast. All CT scans are performed using dose optimization technique as appropriate and may include automated exposure control or mA/KV adjustment according to patient size. FINDINGS: The lung bases are clear.Cholecystectomy. The liver demonstrates fatty infiltration. The spleen, pancreas, adrenal glands and left kidney are within normal limits. Mild right hydronephrosis and hydroureter is present. 4 mm stone (400 HU) is present in the distal right ureter. No bowel obstruction, free air, free fluid or abscess. Small fat containing umbilical hernia. The appendix is normal. No evidence of significant lymphadenopathy. No suspicious bony findings. IMPRESSION: Mild right hydronephrosis is present caused by a 4 mm stone distal right ureter. Surgery: Cytoscopy, Ureteroscopy, Stone basket extraction, Stent placement. Medical Problem List: Right flank pain secondary to mild right hydronephrosis with 4 mm distal right ureter stone. Status post Cytoscopy, Ureteroscopy, Stone basket extraction, Stent placement. Brief History of Present Illness: 42-year-old female presented emergency room with right flank pain. Patient had been seen prior to ER visit for right flank pain. She is found to have mild hydronephrosis secondary to a right 4 mm distal right ureter stone. The patient return to the ER with continued pain. The patient was admitted for further evaluation and treatment. Hospital Course: Patient presented with right flank pain secondary to secondary to mild right hydronephrosis with 4 mm distal right ureter stone. Patient was started on IV antibiotic therapy and fluids. Pain medication was given. Urology evaluated patient and recommended intervention. Cytoscopy, Ureteroscopy, Stone basket extraction, and Stent placement was performed. Patient tolerated the procedure well. The patient remained in the hospital Overnite. At discharge she will continue with Keflex 500 mg 1 pill daily for 21 days, oxybutynin ER 10 mg 1 pill daily for 7 days. Tramadol 50 mg 1 pill 3 times a day as needed for pain will be provided. Recommendation for the patient to follow up with urology in 1 week to monitor her progress. Stent will need to be removed in the near future. Recommendations for the patient follow up with her PCP follow up this hospitalization as well. Vital Signs/Physical Exam: Temp Pulse Resp BP Pulse Ox 97.1 F 63 18 136/68 100 07/28/18 04:00 07/28/18 04:00 07/28/18 04:00 07/28/18 04:00 07/28/18 04:00 General: Alert, In no apparent distress, Oriented x3, Cooperative HEENT: Atraumatic Neck: Supple Respiratory: Clear to auscultation bilaterally, Normal air movement Cardiovascular: Normal pulses, Regular rate/rhythm Gastrointestinal: Normal bowel sounds, Soft and benign, Non-distended, No tenderness, No masses, No rebound, No guarding Musculoskeletal: No erythema, No tenderness, No warmth Integumentary: No tenderness/swelling, No erythema, No warmth, No cyanosis Neurological: Normal speech, Normal strength at 5/5 x4 extr, Normal tone, Normal affect Lymphatics: No axilla or inguinal lymphadenopathy Laboratory Data at Discharge: WBC 11.0 K/uL (4.3-10.9) H 07/27/18 05:47 Hgb 12.4 g/dL (12.0-15.0) 07/27/18 05:47 Hct 35.4 % (36.0-45.0) L 07/27/18 05:47 Plt Count 253 K/uL (152-406) 07/27/18 05:47 Sodium 142 mmol/L (136-145) 07/27/18 05:47 Potassium 3.9 mmol/L (3.5-5.1) 07/27/18 05:47 BUN 13 mg/dL (7-18) 07/27/18 05:47 Creatinine 0.60 mg/dL (0.55-1.3) 07/27/18 05:47 Glucose 109 mg/dL (74-106) H 07/27/18 05:47 Total Bilirubin 0.5 mg/dL (0.2-1.0) 07/26/18 21:00 AST 18 U/L (15-37) 07/26/18 21:00 ALT 32 U/L (12-78) 07/26/18 21:00 Alkaline Phosphatase 79 U/L (45-117) 07/26/18 21:00 Amylase 28 U/L (25-115) 07/26/18 21:00 Lipase 64 U/L (73-393) L 07/26/18 21:00 Home Medications: NK [No Home Meds] 07/26/18 Patient Discharge Instructions: 1. Patient will need to follow up with a PCP in 1 week to follow up this hospitalization. 2. Patient presented with right flank pain secondary to secondary to mild right hydronephrosis with 4 mm distal right ureter stone. Patient was seen and evaluated by urology. Urology intervention was recommended. Cytoscopy, Ureteroscopy, Stone basket extraction, and Stent placement was performed. Patient tolerated the procedure well. At discharge she will continue with Keflex 500 mg 1 pill daily for 21 days, and oxybutynin ER 10 mg 1 pill daily for 7 days as prescribed by urology. Tramadol 50 mg 1 pill 3 times a day as needed for pain will be provided. Recommendation for the patient to follow up with urology in 1 week to monitor her progress. Stent will need to be removed in the near future. Recommendations for the patient follow up with her PCP follow up this hospitalization as well. Diet: AHA Activity: Ad miles Time spent managing pt's care (in minutes): 55
[2018-07-28 08:46] VITALS: BP 104/58; TEMP 97.6
== END 2018-07-28 10:58 | disposition home or self-care (01) ==
LOC: ER 20:26 → ERHOLD 22:59 → 4TH 23:37
PROVIDERS: ADMIT Internal Medicine; ATTEND Family Medicine
PROC: 0T9680Z Drainage of Right Ureter with Drainage Device, Via Natural or Artificial Opening Endoscopic (ICD-10-PCS; 2018-07-27)
PROC: 0TC68ZZ Extirpation of Matter from Right Ureter, Via Natural or Artificial Opening Endoscopic (ICD-10-PCS; principal; 2018-07-27 12:00)
DX: N13.2 Hydronephrosis with renal and ureteral calculous obstruction (principal); E66.9 Obesity, unspecified; Z68.41 Body mass index [BMI] 40.0-44.9, adult
CPT/HCPCS: 36415; 51610; 74018; 74450; 80048; 80076; 81003; 81015; 81025; 82150; 82360; 83690; 85025; 87086; 87088; 88300; 99285; G0378; J0696; J1100; J1580; J2250; J2405; J2550; J3010; J3475; J7030; Q9967

== ENCOUNTER 2023-09-28 05:04 | Emergency (ER) | payer OTHER ==
--- OUTSIDE RECORDS SUMMARY | 2023-09-28 05:07 | XMS REPORT | Continuity of Care Document ---
:1975 Author Organization [facility] t Address [address] [place] [address] [place] [address] Care Team Providers Name Role Phone [email or web address]_Kadiyala_S Attending Clinician Unavailable Balitbit_R Attending Clinician Unavailable Juan Marie Attending Clinician Unavailable [email or web address]_Kadiyala_S Admitting Clinician Unavailable Balitbit_R Admitting Clinician Unavailable Physician, No Primary or Family Admitting Clinician Unavaila ble Payers Payer Name Policy Type Policy Number Effective Date Expiration Date S [facility] [id number] 2022 00:00:00 [place] Problems Condition Condition Condition Status Onset Resolution Last Treating Co mments Source Name Details Category Date Date Treatment Clinician Date Cough Cough Problem Active 2021-11 [facility] 2-13 Family 00:00: Practic 00 e Hyperlipid Hyperlipid Problem Active 2021-11 [facility] em[facility] emia 0-31 Family 00:00: Practic 00 e Essential Essential Problem Active 2021-11 Maricruz lyric hypertensi Hypertensi 0-07 Fa on 00:00: Practic 00 e Right Right Problem Active 2021-11 [facility] lower Lower 0-07 Family quadrant Quadrant 00:00: Practi c pain Pain 00 e Obesity Obesity Problem Active [facility] 9-08 Family 00:00: Practic 00 e Headache Headache Problem Active Pawel huang 8-08 Family 00:00: Practic 00 e Dysuria Dysuria Problem Active [facility] 8-08 Family 00:00: Practic 00 e Fatigue Fatigue Problem Active [facility] 8-08 Family 00:00: Practic 00 e Allergies, Adverse Reactions, Alerts Allergy Allergy Status Severity Reaction(s) Onset Inactive Treating Comm ents Source Name Type Date Date Clinician No Known DA Active U 2021-11 [facility] 12-29 [facility] 00:00: d 00 [facility] Social History Smoking Status Start Date Stop Date Source Never Smoker Radha Garces P ractice Medications Ordered Filled Start Stop Current Ordering Indication Dosage Frequency Signature Comments Components Source Medication Medication Date Date Medication? Clinician (SIG) Name Name gabapentin gabapentin No gabapentin [facility] 100 mg 100 mg 100 mg Family capsule capsule capsule Practi c TAKE ONE TAKE ONE TAKE ONE e (1) (1) (1) CAPSULE(S) CAPSULE(S) CAPSULE(S) BY MOUTH BY MOUTH BY MOUTH THREE TIMES THREE TIMES THREE A DAY. A DAY. TIMES A DAY. ibuprofen ibuprofen No ibuprofen [facility] 800 mg 800 mg 800 mg Family tablet TAKE tablet TAKE tablet Practic ONE (1) ONE (1) TAKE ONE e TABLET(S) TABLET(S) (1) BY MOUTH BY MOUTH TABLET(S) EVERY EIGHT EVERY EIGHT BY MOUTH HOURS HOURS EVERY NEEDED. NEEDED. EIGHT HOURS NEEDED. ketorolac ketorolac No ketorolac [facility] 10 mg 10 mg 10 mg Family tablet TAKE tablet TAKE tablet Practic ONE (1) ONE (1) TAKE ONE e TABLET(S) TABLET(S) (1) BY MOUTH BY MOUTH TABLET(S) EVERY SIX EVERY SIX BY MOUTH HOURS HOURS EVERY SIX NEEDED. NEEDED. HOURS NEEDED. ondansetron ondansetron No ondansetro [facility] 4 mg 4 mg n 4 mg Family disintegrat disintegrat disintegra Practic ing tablet ing tablet ting e TAKE ONE TAKE ONE tablet (1) (1) TAKE ONE TABLET(S) TABLET(S) (1) BY MOUTH BY MOUTH TABLET(S) EVERY SIX EVERY SIX BY MOUTH HOURS HOURS EVERY SIX NEEDED FOR NEEDED FOR HOURS NAUSEA AND NAUSEA AND NEEDED FOR VOMITING. VOMITING. NAUSEA AND VOMITING. phentermine phentermine No phentermin [facility] 37.5 mg 37.5 mg e 37.5 mg Fami ly tablet TAKE tablet TAKE tablet Practic ONE (1) ONE (1) TAKE ONE e TABLET(S) TABLET(S) (1) BY MOUTH BY MOUTH TABLET(S) ONCE A DAY. ONCE A DAY. BY MOUTH ONCE A DAY. promethazin promethazin No promethazi [facility] e 25 mg e 25 mg ne 25 mg Famil y rectal rectal rectal Practic suppository suppository suppositor e INSERT ONE INSERT ONE y INSERT (1) (1) ONE (1) SUPPOSITORY SUPPOSITORY SUPPOSITOR RECTALLY RECTALLY Y RECTALLY EVERY 4 EVERY 4 EVERY 4 HOURS HOURS HOURS NEEDED FOR NEEDED FOR NEEDED FOR NAUSEA AND NAUSEA AND NAUSEA AND VOMITING. VOMITING. VOMITING. phentermine phentermine No phentermin [facility] 37.5 mg 37.5 mg e 37.5 mg Fami ly capsule capsule capsule Practi c TAKE ONE TAKE ONE TAKE ONE e (1) (1) (1) CAPSULE(S) CAPSULE(S) CAPSULE(S) BY MOUTH BY MOUTH BY MOUTH ONCE A DAY. ONCE A DAY. ONCE A DAY. ibuprofen ibuprofen No ibuprofen [facility] 800 mg 800 mg 800 mg Family tablet TAKE tablet TAKE tablet Practic ONE (1) ONE (1) TAKE ONE e TABLET(S) TABLET(S) (1) BY MOUTH BY MOUTH TABLET(S) EVERY EIGHT EVERY EIGHT BY MOUTH HOURS HOURS EVERY NEEDED. NEEDED. EIGHT HOURS NEEDED. phentermine phen[facility]ine [facility] 37.5 mg 37.5 mg e 37.5 mg Fami ly tablet TAKE tablet TAKE tablet Practic ONE (1) ONE (1) TAKE ONE e TABLET(S) TABLET(S) (1) BY MOUTH BY MOUTH TABLET(S) ONCE A DAY. ONCE A DAY. BY MOUTH ONCE A DAY. ibuprofen ibuprofen No ibuprofen [facility] 800 mg 800 mg 800 mg Family tablet TAKE tablet TAKE tablet Practic ONE (1) ONE (1) TAKE ONE e TABLET(S) TABLET(S) (1) BY MOUTH BY MOUTH TABLET(S) EVERY EIGHT EVERY EIGHT BY MOUTH HOURS HOURS EVERY NEEDED. NEEDED. EIGHT HOURS NEEDED. phentermine phentermine No phentermin [facility] 37.5 mg 37.5 mg e 37.5 mg Fami ly tablet TAKE tablet TAKE tablet Practic ONE (1) ONE (1) TAKE ONE e TABLET(S) TABLET(S) (1) BY MOUTH BY MOUTH TABLET(S) ONCE A DAY. ONCE A DAY. BY MOUTH ONCE A DAY. azithromyci azithromyci No azithromyc [facility] n 250 mg n 250 mg in 250 mg Fa paul tablet TAKE tablet TAKE tablet Practic 2 TABLETS 2 TABLETS TAKE 2 e (500 MG) BY (500 MG) BY TABLETS ORAL ROUTE ORAL ROUTE (500 MG) ONCE DAILY ONCE DAILY BY ORAL FOR 1 DAY FOR 1 DAY ROUTE ONCE THEN 1 THEN 1 DAILY FOR TABLET (250 TABLET (250 1 DAY THEN MG) BY ORAL MG) BY ORAL 1 TABLET ROUTE ONCE ROUTE ONCE (250 MG) DAILY FOR 4 DAILY FOR 4 BY ORAL DAYS DAYS ROUTE ONCE DAILY FOR 4 DAYS benzonatate benzonatate No 1capsul TID benzonatat [facility] 200 mg 200 mg e(s) e 200 mg Family capsule capsule capsule Practi c Take 1 Take 1 Take 1 e capsule 3 capsule 3 capsule 3 times a day times a day times a by oral by oral day by route. route. oral route. cyclobenzap cyclobenzap No cyclobenza [facility] rine 5 mg rine 5 mg jigar 5 mg Family tablet TAKE tablet TAKE tablet Practic ONE (1) ONE (1) TAKE ONE e TABLET(S) TABLET(S) (1) BY MOUTH BY MOUTH TABLET(S) THREE TIMES THREE TIMES BY MOUTH A DAY A DAY THREE NEEDED. NEEDED. TIMES A DAY NEEDED. Vital Signs Vital Name Observation Time Observation Value Comments Source Height 2022-11-01 00:00:00 64 [in_i] [facility] BP Diastolic 2022-08-26 00:00:00 85 mm[Hg] [facility] Height 2022-08-26 00:00:00 64 [in_i] [facility] BMI (Body Mass 2022-08-26 00:00:00 36.5 kg/m2 [facility] Family Index) Practice BP Systolic 2022-08-26 00:00:00 123 mm[Hg] [facility] Body Weight 2022-08-26 00:00:00 212.6 [lb_av] [facility] BP Diastolic 2022-07-28 00:00:00 78 mm[Hg] [facility] Height 2022-07-28 00:00:00 64 [in_i] [facility] BMI (Body Mass 2022-07-28 00:00:00 37.1 kg/m2 [facility] Family Index) Practice BP Systolic 2022-07-28 00:00:00 129 mm[Hg] [facility] Body Weight 2022-07-28 00:00:00 216.4 [lb_av] [facility] BP Diastolic 2022-06-27 00:00:00 78 mm[Hg] [facility] Height 2022-06-27 00:00:00 64 [in_i] [facility] BMI (Body Mass 2022-06-27 00:00:00 36.7 kg/m2 [facility]) Practice BP Systolic 2022-06-27 00:00:00 126 mm[Hg] [facility] Body Weight 2022-06-27 00:00:00 213.6 [lb_av] [facility] Procedures Procedure Date / Time Performing Clinician Source Performed MAMMO, screening, digital, 2022-11-01 00:00:00 [facility] bilateral Practice MAMMO, screening, digital, 2022-08-26 00:00:00 V [facility] bilateral Practice US, pelvis, transabdominal + 2022-08-26 00:00:00 [facility] transvaginal [facility] home sleep study 2022-06-27 00:00:00 [facility] adria Practice electrocardiogram 2022-06-27 00:00:00 [facility] paulPsychiatric Cholecystectomy [facility] Ligation of Fallopian Tube [facility] Section [facility] Plan of Care Planned Activity Planned Date Details Comments Source Diagnostic Test Pending 2022-08-26 pap, IG + HR HPV [facility] 00:00:00 [code = pap, IG + Practice HR HPV] Instructions [facility] Encounters Start End Encounter Admission Attending Care Care Encounter Source Date/Time Date/Time Type Type Clinicians Facility Department ID 2023-09-17 2023-09-17 Outpatient GC_GCBZW_Ka PRIV PRIV [id number] [facility] 00:00:00 00:00:00 rain_Teresa [id number] Medic al 2022-11-01 2022-11-01 Outpatient Balitbit_R VFP VFP [id number] 809-20 [facility] 00:00:00 00:00:00 [id number] Family Practic e 2022-11-01 2022-11-01 Outpatient Balitbit_R VFP VFP [id number] 809-20 [facility] 00:00:00 00:00:00 [id number] Family Practic e 2022-11-01 2022-11-01 Donna Cunningham VFP [place] - [id number] 3 [facility] 00:00:00 00:00:00 Radha Menjivar MD: [id number] [facility] - [facility] [place] - e [facility] V[address], [address], [place] [phone] , Ph. 2022-10-28 2022-10-28 Emergency EM Frank, HCAMN JC [id number] [facility] 10:21:00 15:14:[address] [facility] 2022-08-26 2022-08-26 Outpatient Balitbit_R VFP VFP [id number] 809-20 [facility] 00:00:00 00:00:00 [id number] Family Practic e 2022-08-26 2022-08-26 Craig Marisa VFP [place] - [id number] [place] 00:00:00 00:00:00 Radha Menjivar MD: Roge [facility] [place] [facility], [address] [facility] [address], [place] [phone] , Ph. 2022-07-28 2022-07-28 Outpatient Balitbit_R VFP VFP [id number] 809-20 [facility] 00:00:00 00:00:00 [id number] Family Practic e 2022-07-28 2022-07-28 Donna Marisa VFP [place] - [id number] [place] 00:00:00 00:00:00 Radha Menjivar MD: Roge [facility] [place] - [place] [facility], [address] [facility] [address], [place] [phone] , Ph. 2022-06-27 2022-06-27 Outpatient Balitbit_R VFP VFP [id number] 809-20 [facility] 00:00:00 00:00:00 [id number] Family Practic e 2022-06-27 2022-06-27 Craig Marisa VFP [place] - [id number] 8 [place] 00:00:00 00:00:00 [facility] [address], [place] [address] , Ph. 2022-06-26 2022-06-26 Outpatient Balitbit_R VFP VFP [id number] 809-20 Village 00:00:00 00:00:00 [id number] Family Practic e 2022-06-16 2022-06-16 Outpatient Balitbit_R VFP VFP [id number] 809-20 [facility] 00:00:00 00:00:00 [id number] Family Practic e Results Test Description Test Time Test Comments Results Result Sourc e Comments - US TRANSVAGINAL 2022-10-28 NON OB 14:42:00 [facility] 1975 Sex: F FAX: Juan Marie MD [place]: St: REG Name: RONAL LYNCH [facility] : 1975 Age/S: 46/F [address] [facility] Unit #: [id number] Loc: [place], [place] Phys: [place] [address] Acct: [id number] Dis Date: Status: REG ER PHONE #: [phone] Exam Date: 10/28/20228 FAX #: [phone] Reason: right sided pelvic pain EXAMS: CPT CODE: [id number] [place] [id number] EXAM: PELVIC ULTRASOUND INDICATION: RIGHT SIDED PELVIC PAIN COMPARISON: CT dated October 28, 2022 TECHNIQUE: Ocasio scale, spectral analysis and color doppler imaging of the pelvis was performed via transabdominal and endovaginal approaches. FINDINGS: The uterus is normal in size measuring 9.4 x 5.1 x 5.4 cm. No focal fibroid. The endometrial stripe is homogenous measuring 0.7 cm in thickness. There are multiple small nabothian cysts. Right ovary measures 4.8 x 2.4 x 2.5 cm and the left ovary measures 2.9 x 2.4 x 2.3 cm. Arterial and venous flow is confirmed within both ovaries using spectral waveform analysis. No adnexal mass. There is trace free fluid noted in the cul-de-sac. IMPRESSION: Normal sonographic appearance of the uterus and ovaries. LOCATION: B2 at 1442 Reported and signed by: Jaymie Berg M.D. CC: Juan Marie MD Technologist: [id number] 1; JOB ATKINSON [facility] Date/Time/By: 10/28/2022 (1442) : By: [email or web address] PAGE 1 Signed Report FAX: Juan Marie MD [place]: St: REG Name: RONAL LYNCH [facility] : 1975 Age/S: 46/F [address] [facility] Unit #: [id number] Loc: [place], [place]: [place] [address] Acct: [id number] Dis Date: Status: REG ER PHONE #: [phone] Exam Date: 10/28/2022 1418 FAX #: [phone] Reason: right sided pelvic pain EXAMS: CPT CODE: [id number] [place] [id number] (Continued) Orig Print D/T: S: 10/28/2022 (1446) PAGE 2 Signed Report - DUP AB/PEL/SC 2022-10-28 COMP 14:42:00 [facility] 1975 Sex: F FAX: Juan Marie MD [place]: St: REG Name: RONAL LYNCH [facility] : 1975 Age/S: 46/F [address] [facility] Unit #: [id number] Loc: [place], [place] Phys: [place] [address] Acct: [id number] Dis Date: Status: REG ER PHONE #: [phone] Exam Date: 10/28/2022 1418 FAX #: [phone] Reason: right sided pelvic pain EXAMS: CPT CODE: [id number] DUP AB/PEL/SC COMP 17972 EXAM: PELVIC ULTRASOUND INDICATION: RIGHT SIDED PELVIC PAIN COMPARISON: CT dated October 28, 2022 TECHNIQUE: Ocasio scale, spectral analysis and color doppler imaging of the pelvis was performed via transabdominal and endovaginal approaches. FINDINGS: The uterus is normal in size measuring 9.4 x 5.1 x 5.4 cm. No focal fibroid. The endometrial stripe is homogenous measuring 0.7 cm in thickness. There are multiple small nabothian cysts. Right ovary measures 4.8 x 2.4 x 2.5 cm and the left ovary measures 2.9 x 2.4 x 2.3 cm. Arterial and venous flow is confirmed within both ovaries using spectral waveform analysis. No adnexal mass. There is trace free fluid noted in the cul-de-sac. IMPRESSION: Normal sonographic appearance of the uterus and ovaries. LOCATION: B2 at 1442 Reported and signed by: Jaymie Berg M.D. CC: Juan Marie MD Technologist: JOB ATKINSON Trnscrd Date/Time/By: 10/28/2022 (2882) : By: [email or web address] PAGE 1 Signed Report FAX: Juan Marie MD [place]: St: REG Name: RONAL LYNCH [facility] : 1975 Age/S: 46/F [address] [facility] Unit #: [id number] Loc: [place], [place]: [place] [address] Acct: [id number] Dis Date: Status: REG ER PHONE #: [phone] Exam Date: 10/28/2022 1418 FAX #: [phone] Reason: right sided pelvic pain EXAMS: CPT CODE: [id number] DUP AB/PEL/SC COMP 25102 (Continued) Orig Print D/T: S: 10/28/2022 (2730) PAGE 2 Signed Report - US PELVIS 2022-10-28 COMPLETE 14:42:00 [facility] 1975 Sex: F FAX: Juan Marie MD [place]: St: REG Name: RONAL LYNCH [facility] : 1975 Age/S: 46/F [address] [facility] Unit #: [id number] Loc: [place], [place]: [place] [address] Acct: [id number] Dis Date: Status: REG ER PHONE #: [phone] Exam Date: 10/28/2022 1418 FAX #: [phone] Reason: right sided pelvic pain EXAMS: CPT CODE: [id number] US PELVIS COMPLETE 96503 EXAM: PELVIC ULTRASOUND INDICATION: RIGHT SIDED PELVIC PAIN COMPARISON: CT dated October 28, 2022 TECHNIQUE: Ocasio scale, spectral analysis and color doppler imaging of the pelvis was performed via transabdominal and endovaginal approaches. FINDINGS: The uterus is normal in size measuring 9.4 x 5.1 x 5.4 cm. No focal fibroid. The endometrial stripe is homogenous measuring 0.7 cm in thickness. There are multiple small nabothian cysts. Right ovary measures 4.8 x 2.4 x 2.5 cm and the left ovary measures 2.9 x 2.4 x 2.3 cm. Arterial and venous flow is confirmed within both ovaries using spectral waveform analysis. No adnexal mass. There is trace free fluid noted in the cul-de-sac. IMPRESSION: Normal sonographic appearance of the uterus and ovaries. LOCATION: B2 at 1442 Reported and signed by: Jaymie Berg M.D. CC: Juan Marie MD Technologist: JOB ATKINSON Trnscrd Date/Time/By: 10/28/2022 (1442) : By: [email or web address] PAGE 1 Signed Report FAX: Juan Marie MD [place]: St: REG Name: RONAL LYNCH [facility] : 1975 Age/S: 46/F [address] [facility] Unit #: [id number] Loc: [place], [place]: [place] [address] Acct: [id number] Dis Date: Status: REG ER PHONE #: [phone] Exam Date: 10/28/2022 1418 FAX #: [phone] Reason: right sided pelvic pain EXAMS: CPT CODE: [id number] US PELVIS COMPLETE 62384 (Continued) Orig Print D/T: S: 10/28/2022 (9804) PAGE 2 Signed Report - CT ABD PELVIS W/O 2022-10-28 CONT 11:20:00 [facility] 1975 Sex: F FAX: Juan Marie MD [place]: St: REG Name: RONAL LYNCH [facility] : 1975 Age/S: 46/F [address] [employer] Unit: [id number] Loc: [place], [place]: [place] [address] Acct: [id number] Dis Date: Status: REG ER PHONE #: [phone] Exam Date: 10/28/2022 1106 FAX #: [phone] Reason: right lower quadrant abdominal pain EXAMS: CPT CODE: [id number] CT ABD PELVIS W/O CONT 40540 EXAM: - CT ABD PELVIS W/O CONT HISTORY: right lower quadrant abdominal pain Location code:C3 TECHNIQUE: Contrast - No oral contrast was given Axial CT images of the abdomen and pelvis were obtained without IV contrast Reconstructions - coronal and sagittal planes Automated exposure reduction (Auto mA/Smart mA) was utilized in compliance with ACR Image Wisely Unless otherwise specified, incidental findings do not require dedicated imaging follow-up. COMPARISON: None FINDINGS: Statements: Lack of intravenous contrast compromises evaluation of abdominopelvic organs and vasculature. Lack of oral contrast compromises evaluation of bowel. Thoracic: Included images of the lower chest demonstrate no abnormalities. Hepatobiliary: The liver is normal without focal lesion. Gallbladder is absent. No biliary dilation. Pancreas: Normal. Spleen: Normal. Adrenals: Normal. Genitourinary: The kidneys are normal. There is no evidence of hydronephrosis of either kidney. There is no evidence of renal calculus. Evaluation of the bladder is limited, but no obvious bladder abnormality is present. Gastrointestinal: No bowel obstruction or perienteric inflammation. The appendix is normal. PAGE 1 Signed Report (CONTINUED) FAX: Juan Marie MD [place]: St: REG Name: RONAL LYNCH [facility] : 1975 Age/S: 46/F [address] [email or web address] Unit: [id number] Loc: [place], [place] Phys: [place] [address] Acct: [id number] Dis Date: Status: REG ER PHONE #: [phone] Exam Date: 10/28/2022 1106 FAX #: [phone] Reason: right lower quadrant abdominal pain EXAMS: CPT CODE: [id number] CT ABD PELVIS W/O CONT 70585 (Continued) Vascular: The aorta is grossly normal in appearance. Lymphatics: No enlarged lymph nodes by CT size criteria. Bones/Soft Tissues: No acute osseous findings. Fat-containing umbilical hernia is present. Peritoneum/Other: No extraluminal air. No extraluminal fluid. IMPRESSION: 1. No acute abnormality. Fat-containing umbilical hernia is present. at 1120 Reported and signed by: Maulik Ervin M.D. CC: Juan Marie MD Technologist: CATALINA DOWNEY Trnscrd Dt/Tm: 10/28/2022 (1120) [email or web address] Orig Print D/T: S: 10/28/2022 (1123 PAGE 2 Signed Report BASIC METABOLIC PANEL 2022-10-28 11:18:00 Test Item Value Reference Range Interpretation Comme nts SODIUM (test code = NA) 135 mmol/l 134.0-147.0 N POTASSIUM (test code = K) 3.5 mmol/L 3.6-5.2 L CHLORIDE (test code = CL) 101 mmol/l 98.0-107.0 N CARBON DIOXIDE (test code = 28.3 mmol/l 21.0-33.0 N CO2) ANION GAP (test code = GAP) 9.2 0-20 N GLUCOSE (test code = GLU) 93 mg/dl 70.0-110.0 N BLOOD UREA NITROGEN (test 9 mg/dl 7.0-18.0 N code = BUN) GLOMERULAR FILTRATION RATE 116 mL/min T he Glomerular Filtration Rate (test code = GFR) is a calcu lated parameterbased on serum Creati nine, patient age and sex. GF R valuesless than 60 mL/min/ 1.73 square meters are artemio cative ofChronic Kidney Disease. Values less than 15 mL/min/ 1.73square meters indicate Kidney failure. The calculation forGFR is based on the CKD-EPI (2020) calculation. Th is formulais race indifferen t and is the recommended for naseem for GFRby the National [facility] for Adults.The GFR will not calculate if th e sex is unknown or if thepatien t's age is <18 years. CREATININE (test code = 0.53 mg/dL 0.60-1.30 L CREAT) ESTIMATED CREAT CLEARANCE 116 mL/min >30 (test code = ECRCL) CALCIUM (test code = CA) 8.4 mg/dl 8.0-10.5 N HEPATIC FUNCTION PANEL [id number] 11:18:00 Test Item Value Reference Range Interpretation Comments TOTAL PROTEIN (test code = PROT) 7.2 gm/dL 6.4-8.2 N ALBUMIN (test code = ALB) 3.5 gm/dl 3.2-4.7 N BILIRUBIN TOTAL (test code = BILT) 0.4 mg/dl 0.0-1.0 N BILIRUBIN DIRECT (test code = 0.1 mg/dl 0.0-0.3 N BILD) SGOT/AST (test code = AST) 11 Units/L 15-37 L SGPT/ALT (test code = ALT) 18 Units/L 12.0-78.0 N ALKALINE PHOSPHATASE TOTAL (test 79 Units/L 50.0-136.0 N code = ALKP) [id number] 11:18:00 Test Item Value Reference Range Interpretation Comments LIPASE (test code = LIP) 62 Units/L 65.0-230.0 L UR HCG [id number] 11:00:00 Test Item Value Reference Range Interpretation Comments UR HCG QUAL (test code = HCGQLU) NEGATIVE NEGATIVE Specimen comments: Clean CatchURINALYSIS [id number] 11:00:00 Test Item Value Reference Range Interpretation Comments UA COLOR (test code = YELLOW COLU) UA APPEARANCE (test code HAZY = APPU) UA GLUCOSE DIPSTICK (test NORMAL mg/dl NORMAL code = DGLUU) UA BILIRUBIN DIPSTICK NEGATIVE mg/dL NEGATIVE (test code = BILU) UA KETONE DIPSTICK (test NEGATIVE mg/dl NEGATIVE code = KETU) UA SPECIFIC GRAVITY (test 1.010 1.000-1.030 code = SGU) UA BLOOD DIPSTICK (test 10 Gabe/micL Gabe/micL NEGATIVE A code = LAKSHMI) UA PH DIPSTICK (test code 7.0 5.0-9.0 = RAMIRO) UA PROTEIN DIPSTICK (test NEGATIVE mg/dl NEGATIVE code = PROU) UA UROBILINIOGEN DIPSTICK NORMAL mg/dl NORMAL (test code = URO) UA NITRITE DIPSTICK (test NEGATIVE NEGATIVE code = MARIE) UA LEUKOCYTE ESTERASE NEGATIVE Urdy/micL NEGATIVE DIPSTICK (test code = LEUU) UA WBC (test code = WBCU) 4-9 WBC/HPF NONE A UA RBC (test code = RBCU) 1-3 RBC/HPF 0-3 UA EPITHELIAL CELLS (test 2-5 EPI/HPF 0-3 A code = EPIU) UA BACTERIA (test code = FEW NONE BACU) Specimen comments: Clean CatchCBC W/AUTO [id number] 10:56:00 Test Item Value Reference Range Interpretation Comments WHITE BLOOD CELL (test code = 6.1 K/mm3 4.5-11.0 N WBC) RED BLOOD CELL (test code = 4.26 M/mm3 3.80-5.20 N RBC) HEMOGLOBIN (test code = HGB) 12.9 gm/dL 12.0-16.0 N HEMATOCRIT (test code = HCT) 38.1 % 36.0-48.0 N MEAN CELL VOLUME (test code = 89.4 UM3 82.0-99.0 N MCV) MEAN CELL HGB (test code = MCH) 30.3 UUG 25.5-32.5 N MEAN CELL HGB CONCETRATION 33.9 gm/dL 29.0-35.5 N (test code = MCHC) RED CELL DISTRIBUTION WIDTH 12.6 % 11.5-15.0 N (test code = RDW) RED CELL DISTRIBUTION WIDTH SD 41.0 fL 34.8-50.2 N (test code = RDW-SD) PLATELET COUNT (test code = 258 K/mm3 150-400 N PLT) MEAN PLATELET VOLUME (test code 9.5 fl 7.4-10.4 N = MPV) NEUTROPHIL % (test code = NT%) 59.1 % 49.0-76.0 N IMMATURE GRANULOCYTE % (test 0.5 % 0.0-0.4 H code = IG%) LYMPHOCYTE % (test code = LY%) 29.2 % 23.0-38.0 N MONOCYTE % (test code = MO%) 9.0 % 1.0-10.0 N EOSINOPHIL % (test code = EO%) 1.5 % 1.0-5.0 N BASOPHIL % (test code = BA%) 0.7 % 0.0-1.0 N NUCLEATED RBC % (test code = 0.0 % 0.0-0.1 N NRBC%) NEUTROPHIL # (test code = NT#) 3.6 K/mm3 2.4-6.3 N IMMATURE GRANULOCYTE # (test 0.03 x10 3/uL 0.00-0.07 N code = IG#) LYMPHOCYTE # (test code = LY#) 1.8 K/mm3 1.2-4.0 N MONOCYTE # (test code = MO#) 0.6 K/mm3 0.0-0.6 N EOSINOPHIL # (test code = EO#) 0.1 K/MM3 0.0-0.7 N BASOPHIL # (test code = BA#) 0.0 K/mm3 0.0-0.2 N NUCLEATED RBC # (test code = 0.00 X10 3uL 0.00-0.01 N NRBC#) CBC W Auto Differential panel - [id number] 00:00:00 Test Item Value Reference Range Interpretation Comments Leukocytes [#/volume] in Blood 8.0 x10e3/uL 3.4-10.8 by Automated count (test code = 6690-2) Erythrocytes [#/volume] in 4.38 x10e6/uL 3.77-5.28 Blood by Automated count (test code = 789-8) Hemoglobin [Mass/volume] in 13.2 g/dL 11.1-15.9 Blood (test code = 718-7) Hematocrit [Volume Fraction] of 40.5 % 34.0-46.6 Blood by Automated count (test code = 4544-3) Erythrocyte mean corpuscular 93 fL 79-97 volume [Entitic volume] by Automated count (test code = 787-2) Erythrocyte mean corpuscular 30.1 pg 26.6-33.0 hemoglobin [Entitic mass] by Automated count (test code = 785-6) Erythrocyte mean corpuscular 32.6 g/dL 31.5-35.7 hemoglobin concentration [Mass/volume] by Automated count (test code = 786-4) Erythrocyte distribution width 12.0 % 11.7-15.4 [Ratio] by Automated count (test code = 788-0) Platelets [#/volume] in Blood 308 x10e3/uL 150-450 by Automated count (test code = 777-3) Neutrophils/100 leukocytes in 60 % not estab. Blood by Automated count (test code = 770-8) Lymphocytes/100 leukocytes in 32 % not estab. Blood by Automated count (test code = 736-9) Monocytes/100 leukocytes in 4 % not estab. Blood by Automated count (test code = 5905-5) Eosinophils/100 leukocytes in 2 % not estab. Blood by Automated count (test code = 713-8) Basophils/100 leukocytes in 1 % not estab. Blood by Automated count (test code = 706-2) Neutrophils [#/volume] in Blood 4.8 x10e3/uL 1.4-7.0 by Automated count (test code = 751-8) Lymphocytes [#/volume] in Blood 2.6 x10e3/uL 0.7-3.1 by Automated count (test code = 731-0) Monocytes [#/volume] in Blood 0.4 x10e3/uL 0.1-0.9 by Automated count (test code = 742-7) Eosinophils [#/volume] in Blood 0.2 x10e3/uL 0.0-0.4 by Automated count (test code = 711-2) Basophils [#/volume] in Blood 0.1 x10e3/uL 0.0-0.2 by Automated count (test code = 704-7) Immature granulocytes/100 1 % not estab. leukocytes in Blood by Automated count (test code = 18510-3) Immature granulocytes 0.0 x10e3/uL 0.0-0.1 [#/volume] in Blood by Automated count (test code = 60049-0) [facility] or Plasma 2022-06-28 00:00:00 Test Item Value Reference Range Interpretation Comments Glucose [Mass/volume] in 88 mg/dL 65-99 Serum or Plasma (test code = 2345-7) Urea nitrogen [Mass/volume] 11 mg/dL 6-24 in Serum or Plasma (test code = 3094-0) Creatinine [Mass/volume] in 0.56 mg/dL 0.57-1.00 L Serum or Plasma (test code = 2160-0) eGFR (test code = eGFR) 115 mL/min/1.73 >59 Urea nitrogen/Creatinine 20 9-23 [Mass Ratio] in Serum or Plasma (test code = 3097-3) Sodium [Moles/volume] in 139 mmol/L 134-144 Serum or Plasma (test code = 2951-2) Potassium [Moles/volume] in 4.1 mmol/L 3.5-5.2 Serum or Plasma (test code = 2823-3) Chloride [Moles/volume] in 102 mmol/L 96-106 Serum or Plasma (test code = 5-0) Carbon dioxide, total 24 mmol/L 20-29 [Moles/volume] in Serum or Plasma (test code = 2027-) Calcium [Mass/volume] in 8.9 mg/dL 8.7-10.2 Serum or Plasma (test code = 69063-4) Protein [Mass/volume] in 6.4 g/dL 6.0-8.5 Serum or Plasma (test code = 2885-2) Albumin [Mass/volume] in 4.2 g/dL 3.8-4.8 Serum or Plasma (test code = 1751-7) Globulin [Mass/volume] in 2.2 g/dL 1.5-4.5 Serum by calculation (test code = 99150-2) Albumin/Globulin [Mass Ratio] 1.9 1.2-2.2 in Serum or Plasma (test code = 1759-0) Bilirubin.total [Mass/volume] 0.4 mg/dL 0.0-1.2 in Serum or Plasma (test code = 1975-2) Alkaline phosphatase 84 IU/L 44-121 [Enzymatic activity/volume] in Serum or Plasma (test code = 6768-6) Aspartate aminotransferase 13 IU/L 0-40 [Enzymatic activity/volume] in Serum or Plasma (test code = 1920-8) Alanine aminotransferase 13 IU/L 0-32 [Enzymatic activity/volume] in Serum or Plasma (test code = 1742-6) [facility] Ref[facility] Culture panel - Urine 2022-06-28 00:00:00 Test Item Value Reference Range Interpretation Comments Specific gravity of Urine by Test 1.015 1.005-1.030 strip (test code = 5811-5) pH of Urine by Test strip (test 6.0 5.0-7.5 code = 5803-2) Color of Urine (test code = yellow yellow 5778-6) Appearance of Urine (test code = clear clear 5767-9) Leukocyte esterase [Presence] in negative negative Urine by Test strip (test code = 5799-2) Protein [Presence] in Urine by negative negative/trace Test strip (test code = 05885-4) Glucose [Presence] in Urine by negative negative Test strip (test code = 03703-4) Ketones [Presence] in Urine by negative negative Test strip (test code = 2514-8) Hemoglobin [Presence] in Urine by trace negative A Test strip (test code = 5794-3) Bilirubin.total [Presence] in negative negative Urine by Test strip (test code = 5770-3) Urobilinogen [Mass/volume] in 0.2 mg/dL 0.2-1.0 Urine by Test strip (test code = 35541-9) Nitrite [Presence] in Urine by negative negative Test strip (test code = 5802-4) Microscopic observation see below: [Identifier] in Urine sediment by Light microscopy (test code = 95271-6) Leukocytes [#/area] in Urine none seen 0-5 sediment by Microscopy high power field (test code = 5821-4) Erythrocytes [#/area] in Urine none seen 0-2 sediment by Microscopy high power field (test code = 74438-8) Epithelial cells [#/area] in Urine 0-10 0-10 sediment by Microscopy high power field (test code = 5787-7) Casts [Presence] in Urine sediment none seen none seen by Light microscopy (test code = 47126-0) Bacteria [#/area] in Urine none seen none seen/few sediment by Microscopy high power field (test code = 5769-5) urinalysis reflex (test code = noflex urinalysis reflex) [facility] LDL - Serum or [id number] 00:00:00 Test Item Value Reference Range Interpretation Comments Cholesterol [Mass/volume] in Serum 203 mg/dL 100-199 H or Plasma (test code = 2093-3) Triglyceride [Mass/volume] in Serum 102 mg/dL 0-149 or Plasma (test code = 2571-8) Cholesterol in HDL [Mass/volume] in 56 mg/dL >39 Serum or Plasma (test code = 2085-9) Cholesterol in VLDL [Mass/volume] 18 mg/dL 5-40 in Serum or Plasma by calculation (test code = 53182-3) Cholesterol in LDL [Mass/volume] in 129 mg/dL 0-99 H Serum or Plasma by calculation (test code = 40538-4) Cholesterol in LDL [Mass/volume] in 119 mg/dL 0-99 H Serum or Plasma by Direct assay (test code = 31001-8) [facility] [Units/volume] in Serum or Plasma by Detection limit <= 0.005 mIU/[id number] 00:00:00 Test Item Value Reference Range Interpretation Comments Thyrotropin [Units/volume] in 1.380 uIU/mL 0.450-4.500 Serum or Plasma by Detection limit <= 0.005 mIU/L (test code = 85892-1) [facility] Ref[facility] Culture panel - Urine 2022-06-28 00:00:00 Test Item Value Reference Range Interpretation Comments Specific gravity of Urine by Test 1.023 1.005-1.030 strip (test code = 5811-5) pH of Urine by Test strip (test 6.5 5.0-7.5 code = 5803-2) Color of Urine (test code = yellow yellow 5778-6) Appearance of Urine (test code = clear clear 5767-9) Leukocyte esterase [Presence] in negative negative Urine by Test strip (test code = 5799-2) Protein [Presence] in Urine by negative negative/trace Test strip (test code = 68986-3) Glucose [Presence] in Urine by negative negative Test strip (test code = 77006-0) Ketones [Presence] in Urine by negative negative Test strip (test code = 2514-8) Hemoglobin [Presence] in Urine by negative negative Test strip (test code = 5794-3) Bilirubin.total [Presence] in negative negative Urine by Test strip (test code = 5770-3) Urobilinogen [Mass/volume] in 0.2 mg/dL 0.2-1.0 Urine by Test strip (test code = 30577-7) Nitrite [Presence] in Urine by negative negative Test strip (test code = 5802-4) Microscopic observation see below: [Identifier] in Urine sediment by Light microscopy (test code = 40782-4) Leukocytes [#/area] in Urine none seen 0-5 sediment by Microscopy high power field (test code = 5821-4) Erythrocytes [#/area] in Urine none seen 0-2 sediment by Microscopy high power field (test code = 81229-4) Epithelial cells [#/area] in Urine 0-10 0-10 sediment by Microscopy high power field (test code = 5787-7) Casts [Presence] in Urine sediment none seen none seen by Light microscopy (test code = 63398-5) Bacteria [#/area] in Urine none seen none seen/few sediment by Microscopy high power field (test code = 5769-5) urinalysis reflex (test code = noflex urinalysis reflex) [facility]
[2023-09-28 06:45] LABS: Absolute Lymphocytes (CBC) 2.3 K/uL (0.7-4.9); Hematocrit 39.1 % (36.0-45.0); Lymphocytes % 26.6 % (15.3-44.8); MPV 7.6 fL (7.6-11.3); Platelets 312 thou/uL (152-406); RBC Red Blood Cell Count 4.39 M/uL (3.86-4.86)
[2023-09-28] MEDS ORDERED: CEFTRIAXONE 1000 MG/VIAL ONE (06:54)
[2023-09-28] MEDS ORDERED: DIAZEPAM 5 MG TABLET ONE (06:54)
[2023-09-28] MEDS ORDERED: KETOROLAC 30 MG/ML INJ ONE (06:54)
[2023-09-28] MEDS ORDERED: NA CHLORIDE 0.9% 50 ML ONE (06:55)
[2023-09-28] MEDS ORDERED: NA CHLORIDE 0.9% 1,000 ML ONE (06:55)
[2023-09-28] MEDS ORDERED: ONDANSETRON 4 MG/2 ML VIAL ONE (06:57)
[2023-09-28 06:59] LABS: Specific Gravity 1.019 (1.005-1.030); Urine Bacteria None Seen /HPF (<20); Urine Bilirubin NEGATIVE (Negative); Urine Blood Negative (Negative); Urine Clarity Turbid (Clear); Urine Color Light-Yellow (Yellow); Urine Glucose NEGATIVE (Negative); Urine Protein NEGATIVE (Negative); Urine RBC <5 /HPF (None Seen); Urine Urobilinogen Normal (Normal); Urine pH 6.5 (5.0-7.0)
[2023-09-28 07:07] LABS: Albumin 3.2 g/dL (3.4-5.0); Bilirubin Total 0.4 mg/dL (0.2-1.0); Potassium 3.8 mEq/L (3.5-5.1)
--- NOTE | 2023-09-28 07:34 | RAD REPORT ---
EXAM DESCRIPTION: CT - Stone Protocol - 09/28/2023 7:14 am CLINICAL HISTORY: Abdominal pain. Right flank pain COMPARISON: 2021 TECHNIQUE: Computed axial tomography of the abdomen pelvis was obtained without oral or IV contrast. Lack of IV and oral contrast limits evaluation of solid organs, appendix, bowel, and vessels. Plascencia l reformatted images were obtained and reviewed. All CT scans are performed using dose optimization technique as appropriate and may include automated exposure control or mA/KV adjustment according to patient size. FINDINGS: A renal calculus is not seen. An ureteral calculus is not noted. A bladder calculus is not present. No hydronephrosis. The liver, spleen, pancreas and adrenals appear grossly normal There is no evidence of diverticulitis. The appendix appears normal. No adnexal mass Small to moderate umbilical hernia. Cholecystectomy IMPRESSION: Negative for a genitourinary calculus
--- NOTE | 2023-09-28 07:41 | EDPHYS ---
Physician Documentation [facility] Name: Marjorie Kingston Age: 47 yrs Sex: Female : 1975 Arrival Date: 09/28/2023 Time: 05:04 Bed 10 Private MD: ED Physician Clarissa Jiménez HPI: 09/28 06:07 This 47 yrs old Female presents to ER via Ambulatory with complaints of Low destin Back Pain, Abdominal Pain. 06:07 The patient presents with pain that is acute, with no known mechanism of injury. The destin symptoms are located in the low back, lumbar area, left low back, left mid back, right mid back and right low back. The pain does not radiate. The problem was sustained without known cause. Onset: The symptoms/episode began/occurred 1 day(s) ago. Modifying factors: The patient symptoms are alleviated by nothing, the patient symptoms are aggravated by nothing. Associated signs and symptoms: Pertinent positives: abdominal pain, dysuria, Pertinent negatives: chest pain. The patient has experienced similar episodes in the past, a few times. 07:38 Patient signed out to me by Dr. Diane at 7 AM. Patient stable with no acute sp3 distress. CT scan is negative for kidney stone and laboratory values are within normal limits. We will ensure pain is under control and safely discharge patient home at this time to follow-up with her PCP.. 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 - Social history:: Smoking status: Patient denies any tobacco usage or history of. - Family history:: not pertinent. ROS: 06:07 Constitutional: Negative for fever, chills, and weight loss, Eyes: Negative for injury, destin pain, redness, and discharge, ENT: Negative for injury, pain, and discharge, Neck: Negative for injury, pain, and swelling, Cardiovascular: Negative for chest pain, palpitations, and edema, Respiratory: Negative for shortness of breath, cough, wheezing, and pleuritic chest pain, Abdomen/GI: Negative for abdominal pain, nausea, vomiting, diarrhea, and constipation, : Negative for injury, bleeding, discharge, and swelling, MS/Extremity: Negative for injury and deformity, Skin: Negative for injury, rash, and discoloration, Neuro: Negative for headache, weakness, numbness, tingling, and seizure, Psych: Negative for depression, anxiety, suicide ideation, homicidal ideation, and hallucinations, Allergy/Immunology: Negative for hives, rash, and allergies, Endocrine: Negative for neck swelling, polydipsia, polyuria, polyphagia, and marked weight changes, Hematologic/Lymphatic: Negative for swollen nodes, abnormal bleeding, and unusual bruising, 06:07 Back: Positive for injury or acute deformity, decreased range of motion, pain at rest, pain with movement, flank pain, radiated pain, Negative for injury or acute deformity, decreased range of motion, pain at rest, pain with movement, Exam: 06:07 Constitutional: This is a well developed, well nourished patient who is awake, alert, destin and in no acute distress. Head/Face: Normocephalic, atraumatic. Eyes: Pupils equal round and reactive to light, extra-ocular motions intact. Lids and lashes normal. Conjunctiva and sclera are non-icteric and not injected. Cornea within normal limits. Periorbital areas with no swelling, redness, or edema. ENT: Nares patent. No nasal discharge, no septal abnormalities noted. Tympanic membranes are normal and external auditory canals are clear. Oropharynx with no redness, swelling, or masses, exudates, or evidence of obstruction, uvula midline. Mucous membranes moist. Neck: Trachea midline, no thyromegaly or masses palpated, and no cervical lymphadenopathy. Supple, full range of motion without nuchal rigidity, or vertebral point tenderness. No Meningismus. Chest/axilla: Normal chest wall appearance and motion. Nontender with no deformity. No lesions are appreciated. Cardiovascular: Regular rate and rhythm with a normal S1 and S2. No gallops, murmurs, or rubs. Normal PMI, no JVD. No pulse deficits. Respiratory: Lungs have equal breath sounds bilaterally, clear to auscultation and percussion. No rales, rhonchi or wheezes noted. No increased work of breathing, no retractions or nasal flaring. Abdomen/GI: Soft, non-tender, with normal bowel sounds. No distension or tympany. No guarding or rebound. No evidence of tenderness throughout. Female : Normal external genitalia. Skin: Warm, dry with normal turgor. Normal color with no rashes, no lesions, and no evidence of cellulitis. MS/ Extremity: Pulses equal, no cyanosis. Neurovascular intact. Full, normal range of motion. Neuro: Awake and alert, GCS 15, oriented to person, place, time, and situation. Cranial nerves II-XII grossly intact. Motor strength 5/5 in all extremities. Sensory grossly intact. Cerebellar exam normal. Normal gait. Psych: Awake, alert, with orientation to person, place and time. Behavior, mood, and affect are within normal limits. 06:07 Back: pain, that is mild, that is moderate, ROM is normal, painful, with all movement, normal spinal alignment noted, CVA tenderness, is absent, muscle spasm, is appreciated in the left low back, left mid back, right mid back and right low back, Vital Signs: 05:36 BP 132 / 88; Pulse 63; Resp 18 S; Temp 98.4(TE); Pulse Ox 98% on R/A; Weight 98.43 kg as6 (R); Height 5 ft. 4 in. (R); Pain 7/10; 05:36 Body Mass Index 37.25 (98.43 kg, 162.56 cm) as6 05:36 Pain Scale: Adult as6 MDM: 05:14 Patient medically screened. [facility] 06:10 Differential diagnosis: arthritis, strain, fracture, sciatica, contusion, Herniated destin disc UTI. Data reviewed: vital signs, nurses notes, lab test result(s), EKG, radiologic studies, CT scan. Consideration of Admission/Observation Escalation of care including admission/observation considered. I considered the following discharge prescriptions or medication management in the emergency department Medications were administered in the Emergency Department. See MAR. Independent interpretation of the following test(s) in the Emergency Department CT Scan: My interpretation is ct stone. Test considered but Not performed: Ultrasound no renal usg. Care significantly affected by the following chronic conditions: kidney stone. 09/28 06:06 Order name: CBC with Diff; Complete Time: 07:01 [facility] 09/28 06:06 Order name: Comprehensive Metabolic Panel; Complete Time: 07:13 [facility] 09/28 06:06 Order name: Urinalysis w/ reflexes; Complete Time: 07:01 [facility] 09/28 06:06 Order name: PREGU; Complete Time: 07:05 [facility] 09/28 06:06 Order name: CT Stone Protocol; Complete Time: 07:38 [facility] Administered Medications: 06:52 Drug: Ketorolac IVP 30 mg IVP once Route: IVP; Site: left antecubital; vc1 06:52 Drug: Ondansetron IVP 4 mg IVP once; over 2 minutes Route: IVP; Site: left antecubital; vc1 06:52 Drug: Rocephin IV 1 grams IV at per protocol once; Given slow IV push per pharmacy vc1 instructions Route: IV; Rate: per protocol; Site: left antecubital; 06:52 Drug: NS 0.9% IV 1000 ml IV at 1 bolus Per protocol; 1000 mL bolus Route: IV; Rate: 1 vc1 bolus; Site: left antecubital; 06:52 Drug: Diazepam PO 5 mg PO once Route: PO; vc1 Disposition Summary: 09/28/23 07:40 Discharge Ordered Notes: Location: Home sp3 Problem: chronic sp3 Symptoms: have improved sp3 Condition: Fair sp3 Diagnosis - Low back pain sp3 - Strain of muscle, fascia and tendon of abdomen, lower back and pelvis sp3 Followup: destin - With: Private Physician - When: 1 - 2 days - Reason: Recheck today's complaints, Continuance of care, Re-evaluation by your physician Followup: destin - With: Danilo Miranda MD - When: 2 - 3 days - Reason: Recheck today's complaints, Continuance of care, Re-evaluation by your physician Discharge Instructions: - Discharge Summary Sheet destin - Acute Back Pain, Adult destin - Chronic Back Pain destin - Musculoskeletal Pain destin - Radicular Pain [facility] Forms: - Work release form kj1 - Medication Reconciliation Form sp3 - Thank You Letter sp3 - Antibiotic Education sp3 - Prescription Opioid Use sp3 - Patient Portal Instructions sp3 - Leadership Thank You Letter sp3 Prescriptions: - acetaminophen-codeine 300-30 mg Oral tablet - take 2 tablet ORAL route every 6 hours as needed for pain; 20 tablet; Refills: destin 0, Product Selection Permitted - Cipro 250 mg Oral tablet - take 1 tablet ORAL route every 12 hours; 14 tablet; Refills: 0, Product destin Selection Permitted Signatures: Dispatcher [employer] EDMS Benedicto, Godfrey, MD MD destin Jiménez, Setul, MD MD sp3 Willie Brunner, FRANCISCO RN as6 Taylor Demspey RN RN vc1
--- NOTE | 2023-09-28 07:41 | ER ---
Nurse's Notes [facility] Name: Marjorie Kingston Age: 47 yrs Sex: Female : 1975 Arrival Date: 09/28/2023 Time: 05:04 Bed 10 Private MD: Diagnosis: Low back pain;Strain of muscle, fascia and tendon of abdomen, lower back and pelvis Presentation: 09/28 05:39 Chief complaint: Patient states: "I am having pain on my right side. I've had kidney as6 stones in the past and also ovarian cysts so it might be that". Coronavirus screen: At this time, the client does not indicate any symptoms associated with coronavirus-19. Ebola Screen: No symptoms or risks identified at this time. Initial Sepsis Screen: Does the patient meet any 2 criteria? No. Patient's initial sepsis screen is negative. Does the patient have a suspected source of infection? No. Patient's initial sepsis screen is negative. Risk Assessment: Do you want to hurt yourself or someone else? Patient reports no desire to harm self or others. Onset of symptoms was September 27, 2023. 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 - Social history:: Smoking status: Patient denies any tobacco usage or history of. - Family history:: not pertinent. Screenin:58 [facility] ED Fall Risk Assessment (Adult) History of falling in the last 3 months, vc1 including since admission No falls in past 3 months (0 pts) Confusion or Disorientation No (0 pts) Intoxicated or Sedated No (0 pts) Impaired Gait No (0 pts) Mobility Assist Device Used No (0 pt) Altered Elimination No (0 pt) Score/Fall Risk Level 0 - 2 = Low Risk Oriented to surroundings, Maintained a safe environment, Educated pt \\T\\ family on fall prevention, incl call for assistance when getting out of bed. Abuse screen: Denies threats or abuse. Nutritional screening: No deficits noted. Tuberculosis screening: No symptoms or risk factors identified. Assessment: 06:59 General: Appears uncomfortable, Behavior is cooperative, appropriate for age. Pain: vc1 Complains of pain in right low back and right mid back and left mid back and left low back and lumbar area Pain currently is 7 out of 10 on a pain scale. Quality of pain is described as sharp. Neuro: No deficits noted. Cardiovascular: No deficits noted. Respiratory: No deficits noted. GI: Bowel sounds present X 4 quads. Abd is soft and non tender. : Reports pain urinary frequency. EENT: No deficits noted. No signs and/or symptoms were reported regarding the EENT system. Derm: No deficits noted. No signs and/or symptoms reported regarding the dermatologic system. Vital Signs: 05:36 BP 132 / 88; Pulse 63; Resp 18 S; Temp 98.4(TE); Pulse Ox 98% on R/A; Weight 98.43 kg as6 (R); Height 5 ft. 4 in. (R); Pain 7/10; 05:36 Body Mass Index 37.25 (98.43 kg, 162.56 cm) as6 05:36 Pain Scale: Adult as6 ED Course: 05:09 Patient arrived in ED. ag3 05:14 Godfrey Diane MD is Attending Physician. destin 05:38 Arm band placed on. as6 05:40 Triage completed. as6 06:57 Taylor Dempsey, RN is Primary Nurse. vc1 06:58 No provider procedures requiring assistance completed. Inserted saline lock: 20 gauge vc1 in left antecubital area, using aseptic technique. Blood collected. 06:59 Patient has correct armband on for positive identification. Bed in low position. Call vc1 light in reach. 07:16 CT Stone Protocol In Process Unspecified. EDMS 07:38 Attending Physician role handed off by Godfrey Diane MD sp3 07:38 Clarissa Jiménez MD is Attending Physician. sp3 07:40 Danilo Miranda MD is Referral Physician. sp3 Administered Medications: 06:52 Drug: Ketorolac IVP 30 mg IVP once Route: IVP; Site: left antecubital; vc1 06:52 Drug: Ondansetron IVP 4 mg IVP once; over 2 minutes Route: IVP; Site: left antecubital; vc1 06:52 Drug: Rocephin IV 1 grams IV at per protocol once; Given slow IV push per pharmacy vc1 instructions Route: IV; Rate: per protocol; Site: left antecubital; 06:52 Drug: NS 0.9% IV 1000 ml IV at 1 bolus Per protocol; 1000 mL bolus Route: IV; Rate: 1 vc1 bolus; Site: left antecubital; 06:52 Drug: Diazepam PO 5 mg PO once Route: PO; vc1 Medication: 06:59 VIS not applicable for this client. vc1 Outcome: 07:40 Discharge ordered by MD. gilbert 07:57 Patient left the ED. iw Signatures: Dispatcher [employer] EDMS Godfrey Diane MD MD cha Williams, Irene, RN RN iw Anya Montalvo Setul, MD MD sp3 Willie Brunner RN RN as6 Taylor Dempsey RN RN vc1
[2023-09-28 08:05] VITALS: BP 132/88; TEMP 98.4; O2SAT 98
== END 2023-09-28 07:57 | disposition home or self-care (01) ==
LOC: ER 05:04
DX: S39.011A Strain of muscle, fascia and tendon of abdomen, initial encounter (principal); S39.012A Strain of muscle, fascia and tendon of lower back, initial encounter; S39.013A Strain of muscle, fascia and tendon of pelvis, initial encounter; Z87.442 Personal history of urinary calculi
CPT/HCPCS: 85025; 81001; 36415; 81025; 80053; 76377; 74176; 96375; 96374; 99284; J2405; J7030; J0696